=== PATIENT | male | born 1970 | race Hispanic/Latino ===

== ENCOUNTER 2021-08-31 12:11 | Inpatient (IN) | payer MEDICARE ==
--- NOTE | 2021-09-01 08:34 | History and Physical Report ---
GP History & Physical - History of Present Illness Date of admission: 08/31/21 Date of Examination: 09/01/21 Reason for Admission: Danger to self Chief Complaint: Suicidal threats and running away from senior living History of Present Illness: Jose Sterling is a 51 year old male with history of Schizophrenia who was admitted from [facility] on 1012 for suicidal ideation. In my interview with the patient he is calm and cooperative. The patient reports that he lives in a senior living and was lost walking down the road. The patient is withdrawn and presents with thought blocking. He denies any current suicidal/ homicidal ideation and denies hallucinations. Per Note:" The patient was brought to the ED by the police due to being found walking down the road. The patient told the police that he was having suicidal thoughts." The patient reports that he he does not have family support' " I don't have nobody." PAST PSYCHIATRIC HISTORY: Diagnoses: Schizophrenia Suicide attempts or Self-harm behavior: Denies Prior psychiatric hospitalizations: yes Substance Abuse history: Denies Previous psychiatric medications tried: Unknown Outpatient treatment: Unknown PAST MEDICAL HISTORY: None reported or document Family Psychiatric History: None reported or documented SOCIAL HISTORY Marital Status: Single Living Arrangements: lives in a senior living Employment Status: Retired Access to guns/weapons: Denies Education:12th grade History of Abuse: Denies Legal History: Denies REVIEW OF SYSTEMS Constitutional: Negative for weight loss ENT: Negative for stridor Respiratory: Negative for cough or hemoptysis All other systems reviewed and are negative MENTAL STATUS EXAMINATION General Appearance and Behavior: Age appropriate, good hygiene, wearing appropriate clothes. calm, cooperative, poor eye contact Cooperation: Cooperative Psychomotor Behavior: Psychomotor normal Mood: "good" Affect and affective range: Incongruent with stated mood Thought Process: thought blocking Thought Content: Not suicidal Speech: normal tone and pace Suicidal Ideation: Denies Homicidal Ideation: Denies Hallucinations: Denies Delusions: None elicited Impulse Control: Questionable Insight and Judgment: Limited insight and fair judgment Memory: Limited Attention: attentive Orientation: a/o to self Assessment (1) Bipolar Disorder Treatment Plan Patient admitted for inpatient psychiatric evaluation, medication adjustment and close monitoring The patient's behavior, mood, sleep and appetite will be closely monitored. Patient enrolled in individual and group therapeutic sessions and encouraged to attend. Patient provided with a safe and structured environment. Patient's physical health needs will be addressed by the Hospitalist. Hospitalist Consulted Labs including CBC, CMP, Lipid profile and Hemoglobin A1C levels ordered for baseline reference Social Assessment will be completed and the Hvac Services Professional will work with patient and family to ensure a suitable and safe disposition Medication adjustment will be made as clinically indicated Continue home medications Usual Wellness Faith/Preservation: - Start Trazodone 50 mg po QHS & 50 mg po QHS PRN between 10 PM & 2 AM for insomnia - Start Melatonin 5 mg po QHS to promote circadian rhythm The patient agreed on the treatment plan, understood the risk, benefit, alternative treatment, potential consequence of no treatment, and gave informed consent. Estimated days: 7 Post hospital care: primary care provider, psychiatric provider Case staffed with Dr. Caballero Legal Status: Voluntary Reaction to Hospitalization: Accepting Medications and Allergies Medications and Allergies Allergies Allergy/AdvReac Type Severity Reaction Status Date / Time No Known Allergies Allergy Unverified 08/31/21 13:27 Home Medications Medication Instructions Recorded Confirmed Last Taken Type Lurasidone HCl [Latuda] 20 mg PO QAM 08/31/21 08/31/21 Unknown History Lurasidone HCl [Latuda] 60 mg PO HS 08/31/21 08/31/21 Unknown History donepeziL [Aricept] 10 mg PO QDAY 08/31/21 08/31/21 Unknown History risperiDONE [RisperDAL] 3 mg PO HS 08/31/21 08/31/21 Unknown History traZODone [Desyrel] 50 mg PO QHS 08/31/21 08/31/21 Unknown History trihexyphenidyL [Artane Tab] 2 mg PO BID 08/31/21 08/31/21 Unknown History Active Meds: Active Medications Donepezil HCl (Donepezil 10 Mg Tab) 10 mg PO QDAY [facility] Miscellaneous Medication (Lurasidone Hcl [Latuda]) 60 mg PO HS [facility] Miscellaneous Medication (Lurasidone Hcl [Latuda]) 20 mg PO QAM [facility] Risperidone (Risperidone 3 Mg Tab) 3 mg PO HS [facility] Trazodone HCl (Trazodone 50 Mg Tab) 50 mg PO QHS [facility] Trihexyphenidyl HCl (Trihexyphenidyl 2 Mg Tab) 2 mg PO BID [facility] Results - Results Labs/Vitals: Laboratory Last Values POC Glucose 103 mg/dL (70-105) 09/01/21 05:52 Last Vital Signs Temp 98.5 F 09/01/21 00:30 Pulse 65 09/01/21 00:30 Resp 18 09/01/21 00:30 BP 125/72 09/01/21 00:30 Pulse Ox 98 09/01/21 00:30 Physical Examination - Constitutional Vitals: Vital Signs Temp Pulse Resp BP Pulse Ox 98.5 F 65 18 125/72 98 09/01/21 00:30 09/01/21 00:30 09/01/21 00:30 09/01/21 00:30 09/01/21 00:30 Temperature -Last 24 Hours Temperature 98.5 F Mental Status Exam - Vital signs Last Vital Signs Temp 98.5 F 09/01/21 00:30 Pulse 65 09/01/21 00:30 Resp 18 09/01/21 00:30 BP 125/72 09/01/21 00:30 Pulse Ox 98 09/01/21 00:30 Physician Certification - Certification Statement Physician Certification Statement: This is an acknowledgement statement that JOSE STERLING JR. is a 51 year old M who requires inpatient psychiatric admission for treatment which could reasonably be expected to improve the patient's condition for Estimated period of time patient will need to remain in the hospital: [ ] Plan for post-hospital care: [ ]
[2021-09-01 09:25] LABS: Basophils # (Auto) 0.1 K/mm3 (0.0-0.1); Basophils % (Auto) 0.8 % (0.0-1.8); Eosinophils # (Auto) 0.1 K/mm3 (0.0-0.4); Eosinophils % (Auto) 1.2 % (0.0-4.3); Hematocrit 47.9 % (35.5-45.6); Hemoglobin 16.2 gm/dl (11.8-15.2); Lymphocytes # (Auto) 2.2 K/mm3 (1.2-5.4); Lymphocytes % (Auto) 21.2 % (13.4-35.0); Mean Corpuscular HGB Conc 34 % (32-34); Mean Corpuscular Volume 93 fl (84-94); Monocytes # (Auto) 0.7 K/mm3 (0.0-0.8); Monocytes % (Auto) 7.1 % (0.0-7.3); Platelet Count 229 K/mm3 (140-440); Red Blood Count 5.16 M/mm3 (3.65-5.03)
[2021-09-01 09:50] LABS: Alanine Aminotransferase 7 units/L (7-56); Albumin 4.4 g/dL (3.9-5); Blood Urea Nitrogen 9 mg/dL (9-20); Calcium 9.6 mg/dL (8.4-10.2); Chol/HDL Ratio 5.97 %; HDL Cholesterol 39 mg/dL (40-59); Hemolysis Index 6; LDL Cholesterol,Direct 156 mg/dL (50-130)
[2021-09-01 09:54] LABS: BUN/Creatinine Ratio 13
[2021-09-01] MEDS ORDERED: LURASIDONE HCL 20 MG PO SCH (10:00)
--- NOTE | 2021-09-01 12:31 | Consultation ---
History of Present Illness - Reason for Consult Consult date: 09/01/21 Medical management Requesting physician: ANGELICA SUBRAMANIAN - History of Present Illness 51 YO Male with Bipolar Disorder, Depression admitted to [facility] for psychiatric stabilization. Consult placed by Dr. Subramanian for medical management. Patient seen and evaluated in the recreation room. No reported nursing events. Patient denies fever, chills, chest pain, palpitation, productive cough, skin rash, recent contact, or known exposure to COVID-19. Patient denies pain. Pt cooperative. Past History Past Medical History: other (See HPI) Past Surgical History: No surgical history, Other (Reviewed) Social history: single. denies: smoking, alcohol abuse, prescription drug abuse Family history: no significant family history, other (Reviewed) Medications and Allergies Allergies Allergy/AdvReac Type Severity Reaction Status Date / Time No Known Allergies Allergy Unverified 08/31/21 13:27 Home Medications Medication Instructions Recorded Confirmed Last Taken Type Lurasidone HCl [Latuda] 20 mg PO QAM 08/31/21 08/31/21 Unknown History Lurasidone HCl [Latuda] 60 mg PO HS 08/31/21 08/31/21 Unknown History donepeziL [Aricept] 10 mg PO QDAY 08/31/21 08/31/21 Unknown History risperiDONE [RisperDAL] 3 mg PO HS 08/31/21 08/31/21 Unknown History traZODone [Desyrel] 50 mg PO QHS 08/31/21 08/31/21 Unknown History trihexyphenidyL [Artane Tab] 2 mg PO BID 08/31/21 08/31/21 Unknown History Active Meds: Active Medications Donepezil HCl (Donepezil 10 Mg Tab) 10 mg PO QDAY [facility] Miscellaneous Medication (Lurasidone Hcl [Latuda]) 60 mg PO HS [facility] Miscellaneous Medication (Lurasidone Hcl [Latuda]) 20 mg PO QAM [facility] Risperidone (Risperidone 3 Mg Tab) 3 mg PO HS [facility] Trazodone HCl (Trazodone 50 Mg Tab) 50 mg PO QHS [facility] Trihexyphenidyl HCl (Trihexyphenidyl 2 Mg Tab) 2 mg PO BID [facility] Review of Systems Constitutional: no weight loss, no weight gain, no fever, no chills Ears, nose, mouth and throat: no ear pain, no tinnitis, no nose pain, no nasal discharge Cardiovascular: no chest pain, no palpitations, no edema, no lightheadedness Respiratory: no cough, no cough with sputum, no hemoptysis, no shortness of breath Gastrointestinal: no nausea, no vomiting, no constipation, no hematemesis Genitourinary Male: no hematuria, no flank pain, no discharge, no urinary frequency, no urinary hesitancy Rectal: no pain, no incontinence, no bleeding Musculoskeletal: no neck stiffness, no neck pain, no shooting arm pain, no arm numbness/tingling, no low back pain Integumentary: no rash, no pruritis, no redness, no wounds, no jaundice Neurological: no transient paralysis, no paralysis, no parathesias, no tingling, no seizures, no syncope Psychiatric: depression Endocrine: no cold intolerance, no heat intolerance, no polydipsia, no polyuria, no nocturia Hematologic/Lymphatic: no easy bruising, no easy bleeding, no lymphedema Allergic/Immunologic: no urticaria, no allergic rhinitis, no anaphylaxis, no angioedema Exam - Constitutional Vitals: Temp Pulse Resp BP Pulse Ox 98.5 F 65 18 125/72 98 09/01/21 00:30 09/01/21 00:30 09/01/21 00:30 09/01/21 00:30 09/01/21 00:30 General appearance: Present: no acute distress, well-nourished - EENT Eyes: Present: PERRL ENT: hearing intact, clear oral mucosa - Neck Neck: Present: supple, normal ROM - Respiratory Respiratory effort: normal Respiratory: bilateral: CTA - Cardiovascular Heart Sounds: Present: S1 & S2. Absent: rub, click - Extremities Extremities: pulses symmetrical, No edema Peripheral Pulses: within normal limits - Abdominal General gastrointestinal: Present: soft, non-tender, non-distended, normal bowel sounds Male genitourinary: Present: normal - Integumentary Integumentary: Present: clear, warm, dry - Musculoskeletal Musculoskeletal: gait normal, strength equal bilaterally - Psychiatric Psychiatric: appropriate mood/affect, intact judgment & insight - Neurologic Neurologic: CNII-XII intact, moves all extremities Results - Labs CBC & Chem 7: 09/01/21 08:56 09/01/21 08:56 Labs: Abnormal lab results 09/01/21 09/01/21 09/01/21 Range/Units 08:42 08:56 08:56 RBC 5.16 H (3.65-5.03) M/mm3 Hgb 16.2 H (11.8-15.2) gm/dl Hct 47.9 H (35.5-45.6) % Creatinine 0.7 L (0.8-1.3) mg/dL Glucose 143 H (75-100) mg/dL Hemoglobin A1c 6.9 H (4-6) % Triglycerides 222 H (2-149) mg/dL Cholesterol 233 H (50-199) mg/dL LDL Cholesterol Direct 156 H (50-130) mg/dL HDL Cholesterol 39 L (40-59) mg/dL Assessment and Plan - Patient Problems (1) Depression Current Visit: Yes Status: Acute Plan to address problem: Continue current management, supportive care. (2) Bipolar disorder Current Visit: Yes Status: Acute Plan to address problem: Continue medical management (3) Hyperlipidemia Current Visit: Yes Status: Acute Qualifiers: Hyperlipidemia type: mixed hyperlipidemia Qualified Code(s): E78.2 - Mixed hyperlipidemia Plan to address problem: Low-cholesterol diet, supportive care, repeat lipid panel in 30 to 45 days after trial of low-cholesterol diet. Statin therapy as clinically indicated.
[2021-09-01] MEDS: DONEPEZIL 10 MG TAB PO SCH (13:49)
[2021-09-01] MEDS: TRIHEXYPHENIDYL 2 MG TAB PO SCH ×2 (13:49→21:28)
[2021-09-01] MEDS ORDERED: ZIPRASIDONE MESYLATE 20 MG VIAL IM PRN (13:49)
[2021-09-01] MEDS ORDERED: WATER FOR INJ Sterile (PF) 10 ML ONE (14:01)
[2021-09-01] MEDS: risperiDONE 3 MG TAB PO SCH (21:27)
[2021-09-01] MEDS: traZODone 50 MG TAB PO SCH (21:28)
[2021-09-01] MEDS ORDERED: LURASIDONE HCL 60 MG PO SCH (22:00)
--- NOTE | 2021-09-02 09:18 | Progress Note ---
Subjective Date of service: 09/02/21 Subjective Comment: 09/02/2021: The patient was seen pacing the hallway. The patient reports feeling down sometimes. He said he lived at the long-term for 10 years and would like to return there on discharge. He denies any current suicidal ideation and denies hallucinations. SOCIAL HISTORY Marital Status: Single Living Arrangements: lives in a long-term Employment Status: Retired Access to guns/weapons: Denies Education:12th grade History of Abuse: Denies Legal History: Denies REVIEW OF SYSTEMS Constitutional: Negative for weight loss ENT: Negative for stridor Respiratory: Negative for cough or hemoptysis All other systems reviewed and are negative MENTAL STATUS EXAMINATION General Appearance and Behavior: Age appropriate, good hygiene, wearing appropriate clothes. calm, cooperative, poor eye contact Cooperation: Cooperative Psychomotor Behavior: Psychomotor normal Mood: "ok" Affect and affective range: Incongruent with stated mood Thought Process: Goal directed Thought Content: Not suicidal Speech: normal tone and pace Suicidal Ideation: Denies Homicidal Ideation: Denies Hallucinations: Denies Delusions: None elicited Impulse Control: Questionable Insight and Judgment: Limited insight and fair judgment Memory: Limited Attention: attentive Orientation: a/o to self Assessment (1) Schizophrenia Treatment Plan Patient admitted for inpatient psychiatric evaluation, medication adjustment and close monitoring The patient's behavior, mood, sleep and appetite will be closely monitored. Patient enrolled in individual and group therapeutic sessions and encouraged to attend. Patient provided with a safe and structured environment. Patient's physical health needs will be addressed by the Hospitalist. Hospitalist Consulted Labs including CBC, CMP, Lipid profile and Hemoglobin A1C levels ordered for baseline reference Social Assessment will be completed and the Child And Adolescent Psychologist will work with patie nt and family to ensure a suitable and safe disposition Medication adjustment will be made as clinically indicated Continue home medications Usual Wellness Religion/Preservation: - Start Trazodone 50 mg po QHS & 50 mg po QHS PRN between 10 PM & 2 AM for insomnia - Start Melatonin 5 mg po QHS to promote circadian rhythm The patient agreed on the treatment plan, understood the risk, benefit, alternative treatment, potential consequence of no treatment, and gave informed consent. Estimated days: 6 Post hospital care: primary care provider, psychiatric provider Case staffed with Dr. Caballero Legal Status: Voluntary Reaction to Hospitalization: Accepting Medications and Allergies Medications and Allergies Allergies Allergy/AdvReac Type Severity Reaction Status Date / Time No Known Allergies Allergy Unverified 08/31/21 13:27 Home Medications Medication Instructions Recorded Confirmed Last Taken Type Lurasidone HCl [Latuda] 20 mg PO QAM 08/31/21 08/31/21 Unknown History Lurasidone HCl [Latuda] 60 mg PO 08/31/21 08/31/21 Unknown History donepeziL [Aricept] 10 mg PO QDAY 08/31/21 08/31/21 Unknown History risperiDONE [RisperDAL] 3 mg PO HS 08/31/21 08/31/21 Unknown History traZODone [Desyrel] 50 mg PO QHS 08/31/21 08/31/21 Unknown History trihexyphenidyL [Artane Tab] 2 mg PO BID 08/31/21 08/31/21 Unknown History Active Meds: Active Medications Donepezil HCl (Donepezil 10 Mg Tab) 10 mg PO QDAY [facility] Last Admin: 09/01/21 13:49 Dose: 10 mg Documented by: Lorazepam (Lorazepam 2 Mg/Ml Vial) 1 mg IM Q4H PRN PRN Reason: Anxiety Miscellaneous Medication (Lurasidone Hcl [Latuda]) 60 mg PO HS [facility] Miscellaneous Medication (Lurasidone Hcl [Latuda]) 20 mg PO QAM [facility] Risperidone (Risperidone 3 Mg Tab) 3 mg PO [facility] Last Admin: 09/01/21 21:27 Dose: 3 mg Documented by: Trazodone HCl (Trazodone 50 Mg Tab) 50 mg PO QHS [facility] Last Admin: 09/01/21 21:28 Dose: 50 mg Documented by: Trihexyphenidyl HCl (Trihexyphenidyl 2 Mg Tab) 2 mg PO BID [facility] Last Admin: 09/01/21 21:28 Dose: 2 mg Documented by: Results - Results Labs/Vitals: Laboratory Last Values WBC 10.3 K/mm3 (4.5-11.0) 09/01/21 08:56 RBC 5.16 M/mm3 (3.65-5.03) H 09/01/21 08:56 Hgb 16.2 gm/dl (11.8-15.2) H 09/01/21 08:56 Hct 47.9 % (35.5-45.6) H 09/01/21 08:56 MCV 93 fl (84-94) 09/01/21 08:56 MCH 32 pg (28-32) 09/01/21 08:56 MCHC 34 % (32-34) 09/01/21 08:56 RDW 15.0 % (13.2-15.2) 09/01/21 08:56 Plt Count 229 K/mm3 (140-440) 09/01/21 08:56 Lymph % (Auto) 21.2 % (13.4-35.0) 09/01/21 08:56 Crawford % (Auto) 7.1 % (0.0-7.3) 09/01/21 08:56 Eos % (Auto) 1.2 % (0.0-4.3) 09/01/21 08:56 Baso % (Auto) 0.8 % (0.0-1.8) 09/01/21 08:56 Lymph # (Auto) 2.2 K/mm3 (1.2-5.4) 09/01/21 08:56 Crawford # (Auto) 0.7 K/mm3 (0.0-0.8) 09/01/21 08:56 Eos # (Auto) 0.1 K/mm3 (0.0-0.4) 09/01/21 08:56 Baso # (Auto) 0.1 K/mm3 (0.0-0.1) 09/01/21 08:56 Seg Neutrophils % 69.7 % (40.0-70.0) 09/01/21 08:56 Seg Neutrophils # 7.2 K/mm3 (1.8-7.7) 09/01/21 08:56 Sodium 140 mmol/L (137-145) 09/01/21 08:56 Potassium 4.4 mmol/L (3.6-5.0) 09/01/21 08:56 Chloride 101.8 mmol/L (98-107) 09/01/21 08:56 Carbon Dioxide 24 mmol/L (22-30) 09/01/21 08:56 Anion Gap 19 mmol/L 09/01/21 08:56 BUN 9 mg/dL (9-20) 09/01/21 08:56 Creatinine 0.7 mg/dL (0.8-1.3) L 09/01/21 08:56 Estimated GFR > 60 ml/min 09/01/21 08:56 BUN/Creatinine Ratio 13 % 09/01/21 08:56 Glucose 143 mg/dL (75-100) H 09/01/21 08:56 POC Glucose 99 mg/dL (70-105) 09/02/21 06:12 Hemoglobin A1c 6.9 % (4-6) H 09/01/21 08:42 Calcium 9.6 mg/dL (8.4-10.2) 09/01/21 08:56 Total Bilirubin 0.40 mg/dL (0.1-1.2) 09/01/21 08:56 AST 12 units/L (5-40) 09/01/21 08:56 ALT 7 units/L (7-56) 09/01/21 08:56 Alkaline Phosphatase 117 units/L (35-129) 09/01/21 08:56 Total Protein 7.5 g/dL (6.3-8.2) 09/01/21 08:56 Albumin 4.4 g/dL (3.9-5) 09/01/21 08:56 Albumin/Globulin Ratio 1.4 % 09/01/21 08:56 Triglycerides 222 mg/dL (2-149) H 09/01/21 08:56 Cholesterol 233 mg/dL (50-199) H 09/01/21 08:56 LDL Cholesterol Direct 156 mg/dL (50-130) H 09/01/21 08:56 HDL Cholesterol 39 mg/dL (40-59) L 09/01/21 08:56 Cholesterol/HDL Ratio 5.97 % 09/01/21 08:56 TSH 1.100 mlU/mL (0.270-4.200) 09/01/21 08:56 Last Vital Signs Temp 97.6 F 09/01/21 22:00 Pulse 64 09/01/21 22:00 Resp 16 09/01/21 22:00 BP 127/82 09/01/21 22:00 Pulse Ox 99 09/01/21 22:00
[2021-09-02] MEDS: DONEPEZIL 10 MG TAB PO SCH (09:55)
[2021-09-02] MEDS: TRIHEXYPHENIDYL 2 MG TAB PO SCH ×2 (09:55→21:14)
[2021-09-02] MEDS: hydrOXYzine PAMOATE 25 MG CAP PO PRN (14:27)
[2021-09-02] MEDS: LORazepam 2 MG/ML VIAL IM PRN (19:00)
[2021-09-02] MEDS: risperiDONE 3 MG TAB PO SCH (21:14)
[2021-09-02] MEDS: traZODone 50 MG TAB PO SCH (21:14)
--- NOTE | 2021-09-03 08:35 | Progress Note ---
Subjective Date of service: 09/03/21 Subjective Comment: 09/02/2021: The patient was seen pacing the hallway. The patient reports feeling down sometimes. He said he lived at the assisted for 10 years and would like to return there on discharge. He denies any current suicidal ideation and denies hallucinations. 09/03/2021: The patient was seen eating breakfast. He reports doing well. He is focused on discharge. He denies any current suicidal ideation and denies hallucinations. SOCIAL HISTORY Marital Status: Single Living Arrangements: lives in a assisted Employment Status: Retired Access to guns/weapons: Denies Education:12th grade History of Abuse: Denies Legal History: Denies REVIEW OF SYSTEMS Constitutional: Negative for weight loss ENT: Negative for stridor Respiratory: Negative for cough or hemoptysis All other systems reviewed and are negative MENTAL STATUS EXAMINATION General Appearance and Behavior: Age appropriate, good hygiene, wearing appropriate clothes. calm, cooperative, poor eye contact Cooperation: Cooperative Psychomotor Behavior: Psychomotor normal Mood: "ok" Affect and affective range: Incongruent with stated mood Thought Process: Goal directed Thought Content: Not suicidal Speech: normal tone and pace Suicidal Ideation: Denies Homicidal Ideation: Denies Hallucinations: Denies Delusions: None elicited Impulse Control: Questionable Insight and Judgment: Limited insight and fair judgment Memory: Limited Attention: attentive Orientation: a/o to self Assessment (1) Schizophrenia Treatment Plan Patient admitted for inpatient psychiatric evaluation, medication adjustment and close monitoring The patient's behavior, mood, sleep and appetite will be closely monitored. Patient enrolled in individual and group therapeutic sessions and encouraged to attend. Patient provided with a safe and structured environment. Patient's physical health needs will be addressed by the Hospitalist. Hospi talist Consulted Labs including CBC, CMP, Lipid profile and Hemoglobin A1C levels ordered for baseline reference Social Assessment will be completed and the Technology Development Intern will work with patient and family to ensure a suitable and safe disposition Medication adjustment will be made as clinically indicated Continue home medications Usual Wellness Zoroastrian/Preservation: - Start Trazodone 50 mg po QHS & 50 mg po QHS PRN between 10 PM & 2 AM for insomnia - Start Melatonin 5 mg po QHS to promote circadian rhythm The patient agreed on the treatment plan, understood the risk, benefit, alternative treatment, potential consequence of no treatment, and gave informed consent. Estimated days: 6 Post hospital care: primary care provider, psychiatric provider Case staffed with Dr. Caballero Legal Status: Voluntary Reaction to Hospitalization: Accepting Medications and Allergies Medications and Allergies Allergies Allergy/AdvReac Type Severity Reaction Status Date / Time No Known Allergies Allergy Unverified 08/31/21 13:27 Home Medications Medication Instructions Recorded Confirmed Last Taken Type Lurasidone HCl [Latuda] 20 mg PO QAM 08/31/21 08/31/21 Unknown History Lurasidone HCl [Latuda] 60 mg PO HS 08/31/21 08/31/21 Unknown History donepeziL [Aricept] 10 mg PO QDAY 08/31/21 08/31/21 Unknown History risperiDONE [RisperDAL] 3 mg PO HS 08/31/21 08/31/21 Unknown History traZODone [Desyrel] 50 mg PO QHS 08/31/21 08/31/21 Unknown History trihexyphenidyL [Artane Tab] 2 mg PO BID 08/31/21 08/31/21 Unknown History Active Meds: Active Medications Donepezil HCl (Donepezil 10 Mg Tab) 10 mg PO QDAY [facility] Last Admin: 09/02/21 09:55 Dose: 10 mg Documented by: Hydroxyzine Pamoate (Hydroxyzine Pamoate 25 Mg Cap) 25 mg PO Q6H PRN PRN Reason: Anxiety Last Admin: 09/02/21 14:27 Dose: 25 mg Documented by: Lorazepam (Lorazepam 2 Mg/Ml Vial) 1 mg IM Q4H PRN PRN Reason: Anxiety Last Admin: 09/02/21 19:00 Dose: 1 mg Documented by: Miscellaneous Medication (Lurasidone Hcl [Latuda]) 60 mg PO HS [facility] Miscellaneous Medication (Lurasidone Hcl [Latuda]) 20 mg PO QAM [facility] Risperidone (Risperidone 3 Mg Tab) 3 mg PO [facility] Last Admin: 09/02/21 21:14 Dose: 3 mg Documented by: Trazodone HCl (Trazodone 50 Mg Tab) 50 mg PO QHS [facility] Last Admin: 09/02/21 21:14 Dose: 50 mg Documented by: Trihexyphenidyl HCl (Trihexyphenidyl 2 Mg Tab) 2 mg PO BID [facility] Last Admin: 09/02/21 21:14 Dose: 2 mg Documented by: Results - Results Labs/Vitals: Laboratory Last Values WBC 10.3 K/mm3 (4.5-11.0) 09/01/21 08:56 RBC 5.16 M/mm3 (3.65-5.03) H 09/01/21 08:56 Hgb 16.2 gm/dl (11.8-15.2) H 09/01/21 08:56 Hct 47.9 % (35.5-45.6) H 09/01/21 08:56 MCV 93 fl (84-94) 09/01/21 08:56 MCH 32 pg (28-32) 09/01/21 08:56 MCHC 34 % (32-34) 09/01/21 08:56 RDW 15.0 % (13.2-15.2) 09/01/21 08:56 Plt Count 229 K/mm3 (140-440) 09/01/21 08:56 Lymph % (Auto) 21.2 % (13.4-35.0) 09/01/21 08:56 [place] % (Auto) 7.1 % (0.0-7.3) 09/01/21 08:56 Eos % (Auto) 1.2 % (0.0-4.3) 09/01/21 08:56 Baso % (Auto) 0.8 % (0.0-1.8) 09/01/21 08:56 Lymph # (Auto) 2.2 K/mm3 (1.2-5.4) 09/01/21 08:56 [place] # (Auto) 0.7 K/mm3 (0.0-0.8) 09/01/21 08:56 Eos # (Auto) 0.1 K/mm3 (0.0-0.4) 09/01/21 08:56 Baso # (Auto) 0.1 K/mm3 (0.0-0.1) 09/01/21 08:56 Seg Neutrophils % 69.7 % (40.0-70.0) 09/01/21 08:56 Seg Neutrophils # 7.2 K/mm3 (1.8-7.7) 09/01/21 08:56 Sodium 140 mmol/L (137-145) 09/01/21 08:56 Potassium 4.4 mmol/L (3.6-5.0) 09/01/21 08:56 Chloride 101.8 mmol/L (98-107) 09/01/21 08:56 Carbon Dioxide 24 mmol/L (22-30) 09/01/21 08:56 Anion Gap 19 mmol/L 09/01/21 08:56 BUN 9 mg/dL (9-20) 09/01/21 08:56 Creatinine 0.7 mg/dL (0.8-1.3) L 09/01/21 08:56 Estimated GFR > 60 ml/min 09/01/21 08:56 BUN/Creatinine Ratio 13 % 09/01/21 08:56 Glucose 143 mg/dL (75-100) H 09/01/21 08:56 POC Glucose 116 mg/dL (70-105) H 09/03/21 07:38 Hemoglobin A1c 6.9 % (4-6) H 09/01/21 08:42 Calcium 9.6 mg/dL (8.4-10.2) 09/01/21 08:56 Total Bilirubin 0.40 mg/dL (0.1-1.2) 09/01/21 08:56 AST 12 units/L (5-40) 09/01/21 08:56 ALT 7 units/L (7-56) 09/01/21 08:56 Alkaline Phosphatase 117 units/L (35-129) 09/01/21 08:56 Total Protein 7.5 g/dL (6.3-8.2) 09/01/21 08:56 Albumin 4.4 g/dL (3.9-5) 09/01/21 08:56 Albumin/Globulin Ratio 1.4 % 09/01/21 08:56 Triglycerides 222 mg/dL (2-149) H 09/01/21 08:56 Cholesterol 233 mg/dL (50-199) H 09/01/21 08:56 LDL Cholesterol Direct 156 mg/dL (50-130) H 09/01/21 08:56 HDL Cholesterol 39 mg/dL (40-59) L 09/01/21 08:56 Cholesterol/HDL Ratio 5.97 % 09/01/21 08:56 TSH 1.100 mlU/mL (0.270-4.200) 09/01/21 08:56 Last Vital Signs Temp 98.4 F 09/02/21 20:00 Pulse 72 10/16/21 20:00 Resp 20 09/02/21 20:00 BP 114/72 09/02/21 20:00 Pulse Ox 97 09/02/21 20:00
[2021-09-03] MEDS: TRIHEXYPHENIDYL 2 MG TAB PO SCH ×2 (09:22→22:28)
[2021-09-03] MEDS: DONEPEZIL 10 MG TAB PO SCH (09:22)
--- NOTE | 2021-09-03 20:03 | Progress Note ---
Assessment and Plan - Patient Problems (1) Depression Current Visit: Yes Status: Acute Plan to address problem: Continue current management, supportive care. (2) Bipolar disorder Current Visit: Yes Status: Acute Plan to address problem: Continue medical management (3) Hyperlipidemia Current Visit: Yes Status: Acute Qualifiers: Hyperlipidemia type: mixed hyperlipidemia Qualified Code(s): E78.2 - Mixed hyperlipidemia Plan to address problem: Low-cholesterol diet, supportive care, repeat lipid panel in 30 to 45 days after trial of low-cholesterol diet. Statin therapy as clinically indicated. History Interval history: 51 YO Male with Bipolar Disorder, Depression admitted to [facility] for psychiatric stabilization. Patient seen and evaluated in the recreation room. No reported nursing events. Pt cooperative. Hospitalist Physical - Constitutional Vitals: Temp Pulse Resp BP Pulse Ox 98.9 F 92 H 16 104/71 96 09/03/21 08:30 09/03/21 08:30 09/03/21 08:30 09/03/21 08:30 09/03/21 08:30 General appearance: Present: no acute distress, well-nourished - EENT Eyes: Present: PERRL, EOM intact ENT: hearing intact - Neck Neck: Present: supple - Respiratory Respiratory effort: normal Respiratory: bilateral: CTA - Cardiovascular Rhythm: regular Heart Sounds: Present: S1 & S2 - Extremities Extremities: no ischemia Peripheral Pulses: within normal limits - Abdominal General gastrointestinal: soft, non-tender, non-distended - Integumentary Integumentary: Present: clear, dry - Psychiatric Psychiatric: cooperative - Neurologic Neurologic: CNII-XII intact Results - Labs CBC & Chem 7: 09/01/21 08:56 09/01/21 08:56 Labs: Laboratory Last Values WBC 10.3 K/mm3 (4.5-11.0) 09/01/21 08:56 RBC 5.16 M/mm3 (3.65-5.03) H 09/01/21 08:56 Hgb 16.2 gm/dl (11.8-15.2) H 09/01/21 08:56 Hct 47.9 % (35.5-45.6) H 09/01/21 08:56 MCV 93 fl (84-94) 09/01/21 08:56 MCH 32 pg (28-32) 09/01/21 08:56 MCHC 34 % (32-34) 09/01/21 08:56 RDW 15.0 % (13.2-15.2) 09/01/21 08:56 Plt Count 229 K/mm3 (140-440) 09/01/21 08:56 Lymph % (Auto) 21.2 % (13.4-35.0) 09/01/21 08:56 [place] % (Auto) 7.1 % (0.0-7.3) 09/01/21 08:56 Eos % (Auto) 1.2 % (0.0-4.3) 09/01/21 08:56 Baso % (Auto) 0.8 % (0.0-1.8) 09/01/21 08:56 Lymph # (Auto) 2.2 K/mm3 (1.2-5.4) 09/01/21 08:56 [place] # (Auto) 0.7 K/mm3 (0.0-0.8) 09/01/21 08:56 Eos # (Auto) 0.1 K/mm3 (0.0-0.4) 09/01/21 08:56 Baso # (Auto) 0.1 K/mm3 (0.0-0.1) 09/01/21 08:56 Seg Neutrophils % 69.7 % (40.0-70.0) 09/01/21 08:56 Seg Neutrophils # 7.2 K/mm3 (1.8-7.7) 09/01/21 08:56 Sodium 140 mmol/L (137-145) 09/01/21 08:56 Potassium 4.4 mmol/L (3.6-5.0) 09/01/21 08:56 Chloride 101.8 mmol/L (98-107) 09/01/21 08:56 Carbon Dioxide 24 mmol/L (22-30) 09/01/21 08:56 Anion Gap 19 mmol/L 09/01/21 08:56 BUN 9 mg/dL (9-20) 09/01/21 08:56 Creatinine 0.7 mg/dL (0.8-1.3) L 09/01/21 08:56 Estimated GFR > 60 ml/min 09/01/21 08:56 BUN/Creatinine Ratio 13 % 09/01/21 08:56 Glucose 143 mg/dL (75-100) H 09/01/21 08:56 POC Glucose 116 mg/dL (70-105) H 09/03/21 07:38 Hemoglobin A1c 6.9 % (4-6) H 09/01/21 08:42 Calcium 9.6 mg/dL (8.4-10.2) 09/01/21 08:56 Total Bilirubin 0.40 mg/dL (0.1-1.2) 09/01/21 08:56 AST 12 units/L (5-40) 09/01/21 08:56 ALT 7 units/L (7-56) 09/01/21 08:56 Alkaline Phosphatase 117 units/L (35-129) 09/01/21 08:56 Total Protein 7.5 g/dL (6.3-8.2) 09/01/21 08:56 Albumin 4.4 g/dL (3.9-5) 09/01/21 08:56 Albumin/Globulin Ratio 1.4 % 09/01/21 08:56 Triglycerides 222 mg/dL (2-149) H 09/01/21 08:56 Cholesterol 233 mg/dL (50-199) H 09/01/21 08:56 LDL Cholesterol Direct 156 mg/dL (50-130) H 09/01/21 08:56 HDL Cholesterol 39 mg/dL (40-59) L 09/01/21 08:56 Cholesterol/HDL Ratio 5.97 % 09/01/21 08:56 TSH 1.100 mlU/mL (0.270-4.200) 09/01/21 08:56 Rodriguez/IV: Voiding Method Toilet Active Medications - Current Medications Current Medications: Generic Name Dose Route Start Last Admin Trade Name Freq PRN Reason Stop Dose Admin Donepezil HCl 10 mg 09/01/21 10:00 09/03/21 09:22 Donepezil 10 Mg Tab PO 10 mg QDAY [facility] Administration Hydroxyzine Pamoate 25 mg 09/02/21 11:00 09/02/21 14:27 Hydroxyzine Pamoate 25 Mg Cap PO 25 mg Q6H PRN Administration Anxiety Lorazepam 1 mg 09/01/21 14:00 09/02/21 19:00 Lorazepam 2 Mg/Ml Vial IM 1 mg Q4H PRN Administration Anxiety Miscellaneous Medication 60 mg 09/01/21 22:00 Lurasidone Hcl [Latuda] PO HS [facility] Miscellaneous Medication 20 mg 09/01/21 10:00 Lurasidone Hcl [Latuda] PO QAM [facility] Risperidone 3 mg 09/01/21 22:00 09/02/21 21:14 Risperidone 3 Mg Tab PO 3 mg HS [facility] Administration Trazodone HCl 50 mg 09/01/21 22:00 09/02/21 21:14 Trazodone 50 Mg Tab PO 50 mg QHS [facility] Administration Trihexyphenidyl HCl 2 mg 09/01/21 10:00 09/03/21 09:22 Trihexyphenidyl 2 Mg Tab PO 2 mg BID [facility] Administration
[2021-09-03] MEDS: traZODone 50 MG TAB PO SCH (22:28)
[2021-09-03] MEDS: risperiDONE 3 MG TAB PO SCH (22:28)
--- NOTE | 2021-09-04 08:44 | Progress Note ---
Subjective Date of service: 09/04/21 Subjective Comment: 09/02/2021: The patient was seen pacing the hallway. The patient reports feeling down sometimes. He said he lived at the alf for 10 years and would like to return there on discharge. He denies any current suicidal ideation and denies hallucinations. 09/03/2021: The patient was seen eating breakfast. He reports doing well. He is focused on discharge. He denies any current suicidal ideation and denies ravi lucinations. 09/04/2021: Patient seen this morning. He reports doing well and more interactive. He states sleep and appetite as good. The patient denies any current suicidal/homicidal ideation and denies hallucinations. SOCIAL HISTORY Marital Status: Single Living Arrangements: lives in a alf Employment Status: Retired Access to guns/weapons: Denies Education:12th grade History of Abuse: Denies Legal History: Denies REVIEW OF SYSTEMS Constitutional: Negative for weight loss ENT: Negative for stridor Respiratory: Negative for cough or hemoptysis All other systems reviewed and are negative MENTAL STATUS EXAMINATION General Appearance and Behavior: Age appropriate, good hygiene, wearing appropriate clothes. calm, cooperative, poor eye contact Cooperation: Cooperative Psychomotor Behavior: Psychomotor normal Mood: "good" Affect and affective range: Incongruent with stated mood Thought Process: Goal directed Thought Content: Not suicidal Speech: normal tone and pace Suicidal Ideation: Denies Homicidal Ideation: Denies Hallucinations: Denies Delusions: None elicited Impulse Control: Questionable Insight and Judgment: Limited insight and fair judgment Memory: Limited Attention: attentive Orientation: a/o to self Assessment (1) Schizophrenia Treatment Plan Patient admitted for inpatient psychiatric evaluation, medication adjustment and close monitoring The patient's behavior, mood, sleep and appetite will be closely monitored. Patient enrolled in individual and group therapeutic sessions and encouraged to attend. Patient provided with a safe and structured environment. Patient's physical health needs will be addressed by the Hospitalist. Hospitalist Consulted Labs including CBC, CMP, Lipid profile and Hemoglobin A1C levels ordered for baseline reference Social Assessment will be completed and the [employer] will work with patient and family to ensure a suitable and safe disposition Medication adjustment will be made as clinically indicated Continue home medications Usual Wellness Quaker/Preservation: - Start Trazodone 50 mg po QHS & 50 mg po QHS PRN between 10 PM & 2 AM for insomnia - Start Melatonin 5 mg po QHS to promote circadian rhythm The patient agreed on the treatment plan, understood the risk, benefit, alternative treatment, potential consequence of no treatment, and gave informed consent. Estimated days: 4 Post hospital care: primary care provider, psychiatric provider Case staffed with Dr. Caballero Legal Status: Voluntary Reaction to Hospitalization: Accepting Medications and Allergies Medications and Allergies Allergies Allergy/AdvReac Type Severity Reaction Status Date / Time No Known Allergies Allergy Unverified 08/31/21 13:27 Home Medications Medication Instructions Recorded Confirmed Last Taken Type Lurasidone HCl [Latuda] 20 mg PO QAM 08/31/21 08/31/21 Unknown History Lurasidone HCl [Latuda] 60 mg PO HS 08/31/21 08/31/21 Unknown History donepeziL [Aricept] 10 mg PO QDAY 08/31/21 08/31/21 Unknown History risperiDONE [RisperDAL] 3 mg PO HS 08/31/21 08/31/21 Unknown History traZODone [Desyrel] 50 mg PO QHS 08/31/21 08/31/21 Unknown History trihexyphenidyL [Artane Tab] 2 mg PO BID 08/31/21 08/31/21 Unknown History Active Meds: Active Medications Donepezil HCl (Donepezil 10 Mg Tab) 10 mg PO QDAY [facility] Last Admin: 09/03/21 09:22 Dose: 10 mg Documented by: Hydroxyzine Pamoate (Hydroxyzine Pamoate 25 Mg Cap) 25 mg PO Q6H PRN PRN Reason: Anxiety Last Admin: 09/02/21 14:27 Dose: 25 mg Documented by: Lorazepam (Lorazepam 2 Mg/Ml Vial) 1 mg IM Q4H PRN PRN Reason: Anxiety Last Admin: 09/02/21 19:00 Dose: 1 mg Documented by: Miscellaneous Medication (Lurasidone Hcl [Latuda]) 60 mg PO HS [facility] Miscellaneous Medication (Lurasidone Hcl [Latuda]) 20 mg PO QAM [facility] Risperidone (Risperidone 3 Mg Tab) 3 mg PO HS [facility] Last Admin: 09/03/21 22:28 Dose: 3 mg Documented by: Trazodone HCl (Trazodone 50 Mg Tab) 50 mg PO QHS [facility] Last Admin: 09/03/21 22:28 Dose: 50 mg Documented by: Trihexyphenidyl HCl (Trihexyphenidyl 2 Mg Tab) 2 mg PO BID [facility] Last Admin: 09/03/21 22:28 Dose: 2 mg Documented by: Results - Results Labs/Vitals: Laboratory Last Values WBC 10.3 K/mm3 (4.5-11.0) 09/01/21 08:56 RBC 5.16 M/mm3 (3.65-5.03) H 09/01/21 08:56 Hgb 16.2 gm/dl (11.8-15.2) H 09/01/21 08:56 Hct 47.9 % (35.5-45.6) H 09/01/21 08:56 MCV 93 fl (84-94) 09/01/21 08:56 MCH 32 pg (28-32) 09/01/21 08:56 MCHC 34 % (32-34) 09/01/21 08:56 RDW 15.0 % (13.2-15.2) 09/01/21 08:56 Plt Count 229 K/mm3 (140-440) 09/01/21 08:56 Lymph % (Auto) 21.2 % (13.4-35.0) 09/01/21 08:56 [place] % (Auto) 7.1 % (0.0-7.3) 09/01/21 08:56 Eos % (Auto) 1.2 % (0.0-4.3) 09/01/21 08:56 Baso % (Auto) 0.8 % (0.0-1.8) 09/01/21 08:56 Lymph # (Auto) 2.2 K/mm3 (1.2-5.4) 09/01/21 08:56 [place] # (Auto) 0.7 K/mm3 (0.0-0.8) 09/01/21 08:56 Eos # (Auto) 0.1 K/mm3 (0.0-0.4) 09/01/21 08:56 Baso # (Auto) 0.1 K/mm3 (0.0-0.1) 09/01/21 08:56 Seg Neutrophils % 69.7 % (40.0-70.0) 09/01/21 08:56 Seg Neutrophils # 7.2 K/mm3 (1.8-7.7) 09/01/21 08:56 Sodium 140 mmol/L (137-145) 09/01/21 08:56 Potassium 4.4 mmol/L (3.6-5.0) 09/01/21 08:56 Chloride 101.8 mmol/L (98-107) 09/01/21 08:56 Carbon Dioxide 24 mmol/L (22-30) 09/01/21 08:56 Anion Gap 19 mmol/L 09/01/21 08:56 BUN 9 mg/dL (9-20) 09/01/21 08:56 Creatinine 0.7 mg/dL (0.8-1.3) L 09/01/21 08:56 Estimated GFR > 60 ml/min 09/01/21 08:56 BUN/Creatinine Ratio 13 % 09/01/21 08:56 Glucose 143 mg/dL (75-100) H 09/01/21 08:56 POC Glucose 107 mg/dL (70-105) H 09/04/21 06:12 Hemoglobin A1c 6.9 % (4-6) H 09/01/21 08:42 Calcium 9.6 mg/dL (8.4-10.2) 09/01/21 08:56 Total Bilirubin 0.40 mg/dL (0.1-1.2) 09/01/21 08:56 AST 12 units/L (5-40) 09/01/21 08:56 ALT 7 units/L (7-56) 09/01/21 08:56 Alkaline Phosphatase 117 units/L (35-129) 09/01/21 08:56 Total Protein 7.5 g/dL (6.3-8.2) 09/01/21 08:56 Albumin 4.4 g/dL (3.9-5) 09/01/21 08:56 Albumin/Globulin Ratio 1.4 % 09/01/21 08:56 Triglycerides 222 mg/dL (2-149) H 09/01/21 08:56 Cholesterol 233 mg/dL (50-199) H 09/01/21 08:56 LDL Cholesterol Direct 156 mg/dL (50-130) H 09/01/21 08:56 HDL Cholesterol 39 mg/dL (40-59) L 09/01/21 08:56 Cholesterol/HDL Ratio 5.97 % 09/01/21 08:56 TSH 1.100 mlU/mL (0.270-4.200) 09/01/21 08:56 Last Vital Signs Temp 98.9 F 09/03/21 08:30 Pulse 92 H 09/03/21 08:30 Resp 16 09/03/21 08:30 BP 104/71 09/03/21 08:30 Pulse Ox 96 09/03/21 08:30
[2021-09-04] MEDS: TRIHEXYPHENIDYL 2 MG TAB PO SCH ×2 (09:17→21:23)
[2021-09-04] MEDS: DONEPEZIL 10 MG TAB PO SCH (09:17)
[2021-09-04] MEDS: LORazepam 2 MG/ML VIAL IM PRN (17:47)
[2021-09-04] MEDS: risperiDONE 3 MG TAB PO SCH (21:23)
[2021-09-04] MEDS: traZODone 50 MG TAB PO SCH (21:23)
[2021-09-04] MEDS: hydrOXYzine PAMOATE 25 MG CAP PO PRN (21:23)
--- NOTE | 2021-09-05 08:08 | Progress Note ---
Subjective Date of service: 09/05/21 Subjective Comment: 09/02/2021: The patient was seen pacing the hallway. The patient reports feeling down sometimes. [facility] and would like to return there on discharge. He denies any current suicidal ideation and denies hallucinations. 09/03/2021: The patient was seen eating breakfast. He reports doing well. He is focused on discharge. He denies any current suicidal ideation and denies ravi lucinations. 09/04/2021: Patient seen this morning. He reports doing well and more interactive. He states sleep and appetite as good. The patient denies any current suicidal/homicidal ideation and denies hallucinations. 09/05/2021: He reports doing well. He states sleep and appetite as good. The patient denies any current suicidal/homicidal ideation and denies hallucinations. SOCIAL HISTORY Marital Status: Single Living Arrangements: [facility] Employment Status: Retired Access to guns/weapons: Denies Education:12th grade History of Abuse: Denies Legal History: Denies REVIEW OF SYSTEMS Constitutional: Negative for weight loss ENT: Negative for stridor Respiratory: Negative for cough or hemoptysis All other systems reviewed and are negative MENTAL STATUS EXAMINATION General Appearance and Behavior: Age appropriate, good hygiene, wearing appropriate clothes. calm, cooperative, poor eye contact Cooperation: Cooperative Psychomotor Behavior: Psychomotor normal Mood: "ok" Affect and affective range: Incongruent with stated mood Thought Process: Goal directed Thought Content: Not suicidal Speech: normal tone and pace Suicidal Ideation: Denies Homicidal Ideation: Denies Hallucinations: Denies Delusions: None elicited Impulse Control: Questionable Insight and Judgment: Limited insight and fair judgment Memory: Limited Attention: attentive Orientation: a/o to self Assessment (1) Schizophrenia Treatment Plan Patient admitted for inpatient psychiatric evaluation, medication adjustment and close monitoring The patient's behavior, mood, sleep and appetite will be closely monitored. Patient enrolled in individual and group therapeutic sessions and encouraged to attend. Patient provided with a safe and structured environment. Patient's physical health needs will be addressed by the Hospitalist. Hospitalist Consulted Labs including CBC, CMP, Lipid profile and Hemoglobin A1C levels ordered for baseline reference Social Assessment will be completed and the Territory Sales Manager Medical will work with patient and family to ensure a suitable and safe disposition Medication adjustment will be made as clinically indicated Continue home medications Usual Wellness Episcopalian/Preservation: - Start Trazodone 50 mg po QHS & 50 mg po QHS PRN between 10 PM & 2 AM for insomnia - Start Melatonin 5 mg po QHS to promote circadian rhythm The patient agreed on the treatment plan, understood the risk, benefit, alternative treatment, potential consequence of no treatment, and gave informed consent. Estimated days: 4 Post hospital care: primary care provider, psychiatric provider Case staffed with Dr. Caballero Legal Status: Voluntary Reaction to Hospitalization: Accepting Medications and Allergies Medications and Allergies Allergies Allergy/AdvReac Type Severity Reaction Status Date / Time No Known Allergies Allergy Unverified 08/31/21 13:27 Home Medications Medication Instructions Recorded Confirmed Last Taken Type Lurasidone HCl [Latuda] 20 mg PO QAM 08/31/21 08/31/21 Unknown History Lurasidone HCl [Latuda] 60 mg PO HS 08/31/21 08/31/21 Unknown History donepeziL [Aricept] 10 mg PO QDAY 08/31/21 08/31/21 Unknown History risperiDONE [RisperDAL] 3 mg PO HS 08/31/21 08/31/21 Unknown History traZODone [Desyrel] 50 mg PO QHS 08/31/21 08/31/21 Unknown History trihexyphenidyL [Artane Tab] 2 mg PO BID 08/31/21 08/31/21 Unknown History Active Meds: Active Medications Donepezil HCl (Donepezil 10 Mg Tab) 10 mg PO QDAY [facility] Last Admin: 09/04/21 09:17 Dose: 10 mg Documented by: Hydroxyzine Pamoate (Hydroxyzine Pamoate 25 Mg Cap) 25 mg PO Q6H PRN PRN Reason: Anxiety Last Admin: 09/04/21 21:23 Dose: 25 mg Documented by: Lorazepam (Lorazepam 2 Mg/Ml Vial) 1 mg IM Q4H PRN PRN Reason: Anxiety Last Admin: 09/04/21 17:47 Dose: 1 mg Documented by: Miscellaneous Medication (Lurasidone Hcl [Latuda]) 60 mg PO HS [facility] Miscellaneous Medication (Lurasidone Hcl [Latuda]) 20 mg PO QAM [facility] Risperidone (Risperidone 3 Mg Tab) 3 mg PO HS [facility] Last Admin: 09/04/21 21:23 Dose: 3 mg Documented by: Trazodone HCl (Trazodone 50 Mg Tab) 50 mg PO QHS [facility] Last Admin: 09/04/21 21:23 Dose: 50 mg Documented by: Trihexyphenidyl HCl (Trihexyphenidyl 2 Mg Tab) 2 mg PO BID [facility] Last Admin: 09/04/21 21:23 Dose: 2 mg Documented by: Results - Results Labs/Vitals: Laboratory Last Values WBC 10.3 K/mm3 (4.5-11.0) 09/01/21 08:56 RBC 5.16 M/mm3 (3.65-5.03) H 09/01/21 08:56 Hgb 16.2 gm/dl (11.8-15.2) H 09/01/21 08:56 Hct 47.9 % (35.5-45.6) H 09/01/21 08:56 MCV 93 fl (84-94) 09/01/21 08:56 MCH 32 pg (28-32) 09/01/21 08:56 MCHC 34 % (32-34) 09/01/21 08:56 RDW 15.0 % (13.2-15.2) 09/01/21 08:56 Plt Count 229 K/mm3 (140-440) 09/01/21 08:56 Lymph % (Auto) 21.2 % (13.4-35.0) 09/01/21 08:56 [place] % (Auto) 7.1 % (0.0-7.3) 09/01/21 08:56 Eos % (Auto) 1.2 % (0.0-4.3) 09/01/21 08:56 Baso % (Auto) 0.8 % (0.0-1.8) 09/01/21 08:56 Lymph # (Auto) 2.2 K/mm3 (1.2-5.4) 09/01/21 08:56 [place] # (Auto) 0.7 K/mm3 (0.0-0.8) 09/01/21 08:56 Eos # (Auto) 0.1 K/mm3 (0.0-0.4) 09/01/21 08:56 Baso # (Auto) 0.1 K/mm3 (0.0-0.1) 09/01/21 08:56 Seg Neutrophils % 69.7 % (40.0-70.0) 09/01/21 08:56 Seg Neutrophils # 7.2 K/mm3 (1.8-7.7) 09/01/21 08:56 Sodium 140 mmol/L (137-145) 09/01/21 08:56 Potassium 4.4 mmol/L (3.6-5.0) 09/01/21 08:56 Chloride 101.8 mmol/L (98-107) 09/01/21 08:56 Carbon Dioxide 24 mmol/L (22-30) 09/01/21 08:56 Anion Gap 19 mmol/L 09/01/21 08:56 BUN 9 mg/dL (9-20) 09/01/21 08:56 Creatinine 0.7 mg/dL (0.8-1.3) L 09/01/21 08:56 Estimated GFR > 60 ml/min 09/01/21 08:56 BUN/Creatinine Ratio 13 % 09/01/21 08:56 Glucose 143 mg/dL (75-100) H 09/01/21 08:56 POC Glucose 114 mg/dL (70-105) H 09/05/21 06:15 Hemoglobin A1c 6.9 % (4-6) H 09/01/21 08:42 Calcium 9.6 mg/dL (8.4-10.2) 09/01/21 08:56 Total Bilirubin 0.40 mg/dL (0.1-1.2) 09/01/21 08:56 AST 12 units/L (5-40) 09/01/21 08:56 ALT 7 units/L (7-56) 09/01/21 08:56 Alkaline Phosphatase 117 units/L (35-129) 09/01/21 08:56 Total Protein 7.5 g/dL (6.3-8.2) 09/01/21 08:56 Albumin 4.4 g/dL (3.9-5) 09/01/21 08:56 Albumin/Globulin Ratio 1.4 % 09/01/21 08:56 Triglycerides 222 mg/dL (2-149) H 09/01/21 08:56 Cholesterol 233 mg/dL (50-199) H 09/01/21 08:56 LDL Cholesterol Direct 156 mg/dL (50-130) H 09/01/21 08:56 HDL Cholesterol 39 mg/dL (40-59) L 09/01/21 08:56 Cholesterol/HDL Ratio 5.97 % 09/01/21 08:56 TSH 1.100 mlU/mL (0.270-4.200) 09/01/21 08:56 Last Vital Signs Temp 98.3 F 09/04/21 19:07 Pulse 64 09/04/21 19:07 Resp 18 09/04/21 19:07 BP 111/72 09/04/21 19:07 Pulse Ox 99 09/04/21 19:07
[2021-09-05] MEDS: TRIHEXYPHENIDYL 2 MG TAB PO SCH ×2 (09:24→21:09)
[2021-09-05] MEDS: DONEPEZIL 10 MG TAB PO SCH (09:24)
[2021-09-05] MEDS: hydrOXYzine PAMOATE 25 MG CAP PO PRN (09:25)
[2021-09-05] MEDS: LORazepam 2 MG/ML VIAL IM PRN (11:41)
[2021-09-05] MEDS: risperiDONE 3 MG TAB PO SCH (21:09)
[2021-09-05] MEDS: traZODone 50 MG TAB PO SCH (21:09)
--- NOTE | 2021-09-06 09:06 | Progress Note ---
Subjective Date of service: 09/06/21 Subjective Comment: 09/02/2021: The patient was seen pacing the hallway. The patient reports feeling down sometimes. He said he lived [facility] the senior care for [facility] and would like to return there on discharge. He denies any current suicidal ideation and denies hallucinations. 09/03/2021: The patient was seen eating breakfast. He reports doing well. He is focused on discharge. He denies any current suicidal ideation and denies hallucinations. 09/04/2021: Patient seen this morning. He reports doing well and more interactive. He states sleep and appetite as good. The patient denies any current suicidal/homicidal ideation and denies hallucinations. 09/05/2021: He reports doing well. He states sleep and appetite as good. The patient denies any current suicidal/homicidal ideation and denies hallucinati ons. 09/06/2021: The patient is calm and states he is doing well. He reports mood as " happy" The patient denies any current suicidal/homicidal ideation and denies hallucinations. SOCIAL HISTORY Marital Status: Single Living Arrangements: lives in a senior care Employment Status: Retired Access to guns/weapons: Denies Education:12th grade History of Abuse: Denies Legal History: Denies REVIEW OF SYSTEMS Constitutional: Negative for weight loss ENT: Negative for stridor Respiratory: Negative for cough or hemoptysis All other systems reviewed and are negative MENTAL STATUS EXAMINATION General Appearance and Behavior: Age appropriate, good hygiene, wearing appropriate clothes. calm, cooperative, good eye contact Cooperation: Cooperative Psychomotor Behavior: Psychomotor normal Mood: "happy" Affect and affective range: Incongruent with stated mood Thought Process: Goal directed Thought Content: Not suicidal Speech: normal tone and pace Suicidal Ideation: Denies Homicidal Ideation: Denies Hallucinations: Denies Delusions: None elicited Impulse Control: Questionable Insight and Judgment: Limited insight and fair judgment Memory: Limited Attention: attentive Orientation: a/o to self Assessment (1) Schizophrenia Treatment Plan Patient admitted for inpatient psychiatric evaluation, medication adjustment and close monitoring The patient's behavior, mood, sleep and appetite will be closely monitored. Patient enrolled in individual and group therapeutic sessions and encouraged to attend. Patient provided with a safe and structured environment. Patient's physical health needs will be addressed by the Hospitalist. Hospitalist Consulted Labs including CBC, CMP, Lipid profile and Hemoglobin A1C levels ordered for baseline reference Social Assessment will be completed and the Pole Framer Machine will work with patient and family to ensure a suitable and safe disposition Medication adjustment will be made as clinically indicated Continue home medications Usual Wellness Denominational/Preservation: - Start Trazodone 50 mg po QHS & 50 mg po QHS PRN between 10 PM & 2 AM for insomnia - Start Melatonin 5 mg po QHS to promote circadian rhythm The patient agreed on the treatment plan, understood the risk, benefit, alternative treatment, potential consequence of no treatment, and gave informed consent. Estimated days: 3 Post hospital care: primary care provider, psychiatric provider Case staffed with Dr. Caballero Legal Status: Voluntary Reaction to Hospitalization: Accepting Medications and Allergies Medications and Allergies Allergies Allergy/AdvReac Type Severity Reaction Status Date / Time No Known Allergies Allergy Unverified 08/31/21 13:27 Home Medications Medication Instructions Recorded Confirmed Last Taken Type Lurasidone HCl [Latuda] 20 mg PO QAM 08/31/21 08/31/21 Unknown History Lurasidone HCl [Latuda] 60 mg PO 08/31/21 08/31/21 Unknown History donepeziL [Aricept] 10 mg PO QDAY 08/31/21 08/31/21 Unknown History risperiDONE [RisperDAL] 3 mg PO HS 08/31/21 08/31/21 Unknown History traZODone [Desyrel] 50 mg PO QHS 08/31/21 08/31/21 Unknown History trihexyphenidyL [Artane Tab] 2 mg PO BID 08/31/21 08/31/21 Unknown History Active Meds: Active Medications Donepezil HCl (Donepezil 10 Mg Tab) 10 mg PO QDAY [facility] Last Admin: 09/05/21 09:24 Dose: 10 mg Documented by: Hydroxyzine Pamoate (Hydroxyzine Pamoate 25 Mg Cap) 25 mg PO Q6H PRN PRN Reason: Anxiety Last Admin: 09/05/21 09:25 Dose: 25 mg Documented by: Lorazepam (Lorazepam 2 Mg/Ml Vial) 1 mg IM Q4H PRN PRN Reason: Anxiety Last Admin: 09/05/21 11:41 Dose: 1 mg Documented by: Risperidone (Risperidone 3 Mg Tab) 3 mg PO [facility] Last Admin: 09/05/21 21:09 Dose: 3 mg Documented by: Trazodone HCl (Trazodone 50 Mg Tab) 50 mg PO QHS [facility] Last Admin: 09/05/21 21:09 Dose: 50 mg Documented by: Trihexyphenidyl HCl (Trihexyphenidyl 2 Mg Tab) 2 mg PO BID [facility] Last Admin: 09/05/21 21:09 Dose: 2 mg Documented by: Results - Results Labs/Vitals: Laboratory Last Values WBC 10.3 K/mm3 (4.5-11.0) 09/01/21 08:56 RBC 5.16 M/mm3 (3.65-5.03) H 09/01/21 08:56 Hgb 16.2 gm/dl (11.8-15.2) H 09/01/21 08:56 Hct 47.9 % (35.5-45.6) H 09/01/21 08:56 MCV 93 fl (84-94) 09/01/21 08:56 MCH 32 pg (28-32) 09/01/21 08:56 MCHC 34 % (32-34) 09/01/21 08:56 RDW 15.0 % (13.2-15.2) 09/01/21 08:56 Plt Count 229 K/mm3 (140-440) 09/01/21 08:56 Lymph % (Auto) 21.2 % (13.4-35.0) 09/01/21 08:56 [place] % (Auto) 7.1 % (0.0-7.3) 09/01/21 08:56 Eos % (Auto) 1.2 % (0.0-4.3) 09/01/21 08:56 Baso % (Auto) 0.8 % (0.0-1.8) 09/01/21 08:56 Lymph # (Auto) 2.2 K/mm3 (1.2-5.4) 09/01/21 08:56 [place] # (Auto) 0.7 K/mm3 (0.0-0.8) 09/01/21 08:56 Eos # (Auto) 0.1 K/mm3 (0.0-0.4) 09/01/21 08:56 Baso # (Auto) 0.1 K/mm3 (0.0-0.1) 09/01/21 08:56 Seg Neutrophils % 69.7 % (40.0-70.0) 09/01/21 08:56 Seg Neutrophils # 7.2 K/mm3 (1.8-7.7) 09/01/21 08:56 Sodium 140 mmol/L (137-145) 09/01/21 08:56 Potassium 4.4 mmol/L (3.6-5.0) 09/01/21 08:56 Chloride 101.8 mmol/L (98-107) 09/01/21 08:56 Carbon Dioxide 24 mmol/L (22-30) 09/01/21 08:56 Anion Gap 19 mmol/L 09/01/21 08:56 BUN 9 mg/dL (9-20) 09/01/21 08:56 Creatinine 0.7 mg/dL (0.8-1.3) L 09/01/21 08:56 Estimated GFR > 60 ml/min 09/01/21 08:56 BUN/Creatinine Ratio 13 % 09/01/21 08:56 Glucose 143 mg/dL (75-100) H 09/01/21 08:56 POC Glucose 121 mg/dL (70-105) H 09/06/21 07:49 Hemoglobin A1c 6.9 % (4-6) H 09/01/21 08:42 Calcium 9.6 mg/dL (8.4-10.2) 09/01/21 08:56 Total Bilirubin 0.40 mg/dL (0.1-1.2) 09/01/21 08:56 AST 12 units/L (5-40) 09/01/21 08:56 ALT 7 units/L (7-56) 09/01/21 08:56 Alkaline Phosphatase 117 units/L (35-129) 09/01/21 08:56 Total Protein 7.5 g/dL (6.3-8.2) 09/01/21 08:56 Albumin 4.4 g/dL (3.9-5) 09/01/21 08:56 Albumin/Globulin Ratio 1.4 % 09/01/21 08:56 Triglycerides 222 mg/dL (2-149) H 09/01/21 08:56 Cholesterol 233 mg/dL (50-199) H 09/01/21 08:56 LDL Cholesterol Direct 156 mg/dL (50-130) H 09/01/21 08:56 HDL Cholesterol 39 mg/dL (40-59) L 09/01/21 08:56 Cholesterol/HDL Ratio 5.97 % 09/01/21 08:56 TSH 1.100 mlU/mL (0.270-4.200) 09/01/21 08:56 Last Vital Signs Temp 98.6 F 09/05/21 20:03 Pulse 63 09/05/21 20:03 Resp 18 09/05/21 20:03 BP 104/65 09/05/21 20:03 Pulse Ox 96 09/05/21 20:03
[2021-09-06] MEDS: TRIHEXYPHENIDYL 2 MG TAB PO SCH ×2 (09:24→21:17)
[2021-09-06] MEDS: DONEPEZIL 10 MG TAB PO SCH (09:24)
[2021-09-06] MEDS: hydrOXYzine PAMOATE 25 MG CAP PO PRN (17:10)
[2021-09-06] MEDS: traZODone 50 MG TAB PO SCH (21:17)
[2021-09-06] MEDS: risperiDONE 3 MG TAB PO SCH (21:17)
--- NOTE | 2021-09-07 08:00 | Progress Note ---
Subjective Date of service: 09/07/21 Subjective Comment: 09/02/2021: The patient was seen pacing the hallway. The patient reports feeling down sometimes. He said he lived at the [facility] for 10 years and would like to return there on discharge. He denies any current suicidal ideation and denies hallucinations. 09/03/2021: The patient was seen eating breakfast. He reports doing well. He is focused on discharge. He denies any current suicidal ideation and denies ravi lucinations. 09/04/2021: Patient seen this morning. He reports doing well and more interactive. He states sleep and appetite as good. The patient denies any current suicidal/homicidal ideation and denies hallucinations. 09/05/2021: He reports doing well. He states sleep and appetite as good. The patient denies any current suicidal/homicidal ideation and denies hallucinations. 09/06/2021: The patient is calm and states he is doing well. He reports mood as " happy" The patient denies any current suicidal/homicidal ideation and denies hallucinations. 09/07/2021: The patient reports doing well. He states sleep and appetite as good. The patient denies any current suicidal/homicidal ideation and denies hallucinations. SOCIAL HISTORY Marital Status: Single Living Arrangements: lives in a [facility] Employment Status: Retired Access to guns/weapons: Denies Education:12th grade History of Abuse: Denies Legal History: Denies REVIEW OF SYSTEMS Constitutional: Negative for weight loss ENT: Negative for stridor Respiratory: Negative for cough or hemoptysis All other systems reviewed and are negative MENTAL STATUS EXAMINATION General Appearance and Behavior: Age appropriate, good hygiene, wearing appropriate clothes. calm, cooperative, good eye contact Cooperation: Cooperative Psychomotor Behavior: Psychomotor normal Mood: "ok" Affect and affective range: Incongruent with stated mood Thought Process: Goal directed Thought Content: Not suicidal Speech: normal tone and pace Suicidal Ideation: Denies Homicidal Ideation: Denies Hallucinations: Denies Delusions: None elicited Impulse Control: Questionable Insight and Judgment: Limited insight and fair judgment Memory: Limited Attention: attentive Orientation: a/o to self Assessment (1) Schizophrenia Treatment Plan Patient admitted for inpatient psychiatric evaluation, medication adjustment and close monitoring The patient's behavior, mood, sleep and appetite will be closely monitored. Patient enrolled in individual and group therapeutic sessions and encouraged to attend. Patient provided with a safe and structured environment. Patient's physical health needs will be addressed by the Hospitalist. Hospitalist Consulted Labs including CBC, CMP, Lipid profile and Hemoglobin A1C levels ordered for baseline reference Social Assessment will be completed and the Sonography Technologist will work with patient and family to ensure a suitable and safe disposition Medication adjustment will be made as clinically indicated Continue home medications Usual Wellness Latter-Day/Preservation: - Start Trazodone 50 mg po QHS & 50 mg po QHS PRN between 10 PM & 2 AM for insomnia - Start Melatonin 5 mg po QHS to promote circadian rhythm The patient agreed on the treatment plan, understood the risk, benefit, alternative treatment, potential consequence of no treatment, and gave informed consent. Estimated days: 3 Post hospital care: primary care provider, psychiatric provider Case staffed with Dr. Caballero Legal Status: Voluntary Reaction to Hospitalization: Accepting Medications and Allergies Medications and Allergies Allergies Allergy/AdvReac Type Severity Reaction Status Date / Time No Known Allergies Allergy Unverified 08/31/21 13:27 Home Medications Medication Instructions Recorded Confirmed Last Taken Type Lurasidone HCl [Latuda] 20 mg PO QAM 08/31/21 08/31/21 Unknown History Lurasidone HCl [Latuda] 60 mg PO HS 08/31/21 08/31/21 Unknown History donepeziL [Aricept] 10 mg PO QDAY 08/31/21 08/31/21 Unknown History risperiDONE [RisperDAL] 3 mg PO HS 08/31/21 08/31/21 Unknown History traZODone [Desyrel] 50 mg PO QHS 08/31/21 08/31/21 Unknown History trihexyphenidyL [Artane Tab] 2 mg PO BID 08/31/21 08/31/21 Unknown History Active Meds: Active Medications Donepezil HCl (Donepezil 10 Mg Tab) 10 mg PO QDAY [facility] Last Admin: 09/06/21 09:24 Dose: 10 mg Documented by: Hydroxyzine Pamoate (Hydroxyzine Pamoate 25 Mg Cap) 25 mg PO Q6H PRN PRN Reason: Anxiety Last Admin: 09/06/21 17:10 Dose: 25 mg Documented by: Lorazepam (Lorazepam 2 Mg/Ml Vial) 1 mg IM Q4H PRN PRN Reason: Anxiety Last Admin: 09/05/21 11:41 Dose: 1 mg Documented by: Risperidone (Risperidone 3 Mg Tab) 3 mg PO HS [facility] Last Admin: 09/06/21 21:17 Dose: 3 mg Documented by: Trazodone HCl (Trazodone 50 Mg Tab) 50 mg PO QHS [facility] Last Admin: 09/06/21 21:17 Dose: 50 mg Documented by: Trihexyphenidyl HCl (Trihexyphenidyl 2 Mg Tab) 2 mg PO BID [facility] Last Admin: 09/06/21 21:17 Dose: 2 mg Documented by: Results - Results Labs/Vitals: Laboratory Last Values WBC 10.3 K/mm3 (4.5-11.0) 09/01/21 08:56 RBC 5.16 M/mm3 (3.65-5.03) H 09/01/21 08:56 Hgb 16.2 gm/dl (11.8-15.2) H 09/01/21 08:56 Hct 47.9 % (35.5-45.6) H 09/01/21 08:56 MCV 93 fl (84-94) 09/01/21 08:56 MCH 32 pg (28-32) 09/01/21 08:56 MCHC 34 % (32-34) 09/01/21 08:56 RDW 15.0 % (13.2-15.2) 09/01/21 08:56 Plt Count 229 K/mm3 (140-440) 09/01/21 08:56 Lymph % (Auto) 21.2 % (13.4-35.0) 09/01/21 08:56 [place] % (Auto) 7.1 % (0.0-7.3) 09/01/21 08:56 Eos % (Auto) 1.2 % (0.0-4.3) 09/01/21 08:56 Baso % (Auto) 0.8 % (0.0-1.8) 09/01/21 08:56 Lymph # (Auto) 2.2 K/mm3 (1.2-5.4) 09/01/21 08:56 [place] # (Auto) 0.7 K/mm3 (0.0-0.8) 09/01/21 08:56 Eos # (Auto) 0.1 K/mm3 (0.0-0.4) 09/01/21 08:56 Baso # (Auto) 0.1 K/mm3 (0.0-0.1) 09/01/21 08:56 Seg Neutrophils % 69.7 % (40.0-70.0) 09/01/21 08:56 Seg Neutrophils # 7.2 K/mm3 (1.8-7.7) 09/01/21 08:56 Sodium 140 mmol/L (137-145) 09/01/21 08:56 Potassium 4.4 mmol/L (3.6-5.0) 09/01/21 08:56 Chloride 101.8 mmol/L (98-107) 09/01/21 08:56 Carbon Dioxide 24 mmol/L (22-30) 09/01/21 08:56 Anion Gap 19 mmol/L 09/01/21 08:56 BUN 9 mg/dL (9-20) 09/01/21 08:56 Creatinine 0.7 mg/dL (0.8-1.3) L 09/01/21 08:56 Estimated GFR > 60 ml/min 09/01/21 08:56 BUN/Creatinine Ratio 13 % 09/01/21 08:56 Glucose 143 mg/dL (75-100) H 09/01/21 08:56 POC Glucose 104 mg/dL (70-105) 09/07/21 06:05 Hemoglobin A1c 6.9 % (4-6) H 09/01/21 08:42 Calcium 9.6 mg/dL (8.4-10.2) 09/01/21 08:56 Total Bilirubin 0.40 mg/dL (0.1-1.2) 09/01/21 08:56 AST 12 units/L (5-40) 09/01/21 08:56 ALT 7 units/L (7-56) 09/01/21 08:56 Alkaline Phosphatase 117 units/L (35-129) 09/01/21 08:56 Total Protein 7.5 g/dL (6.3-8.2) 09/01/21 08:56 Albumin 4.4 g/dL (3.9-5) 09/01/21 08:56 Albumin/Globulin Ratio 1.4 % 09/01/21 08:56 Triglycerides 222 mg/dL (2-149) H 09/01/21 08:56 Cholesterol 233 mg/dL (50-199) H 09/01/21 08:56 LDL Cholesterol Direct 156 mg/dL (50-130) H 09/01/21 08:56 HDL Cholesterol 39 mg/dL (40-59) L 09/01/21 08:56 Cholesterol/HDL Ratio 5.97 % 09/01/21 08:56 TSH 1.100 mlU/mL (0.270-4.200) 09/01/21 08:56 Last Vital Signs Temp 98.9 F 09/06/21 19:29 Pulse 57 L 09/06/21 19:29 Resp 18 09/06/21 19:29 BP 117/67 09/06/21 19:29 Pulse Ox 98 09/06/21 19:29
[2021-09-07] MEDS: TRIHEXYPHENIDYL 2 MG TAB PO SCH ×2 (09:10→22:06)
[2021-09-07] MEDS: DONEPEZIL 10 MG TAB PO SCH (09:11)
[2021-09-07] MEDS: hydrOXYzine PAMOATE 25 MG CAP PO PRN ×2 (13:12→19:25)
[2021-09-07] MEDS: risperiDONE 3 MG TAB PO SCH (22:06)
[2021-09-07] MEDS: traZODone 50 MG TAB PO SCH (22:06)
[2021-09-08] MEDS: DONEPEZIL 10 MG TAB PO SCH (09:04)
[2021-09-08] MEDS: TRIHEXYPHENIDYL 2 MG TAB PO SCH ×2 (09:04→21:44)
--- NOTE | 2021-09-08 10:22 | Progress Note ---
Subjective Date of service: 09/08/21 Principal diagnosis: schizophrenia Subjective Comment: The patient was seen today. Although, the patient states that he's doing alright, he appeared severely anxious, and preoccupied as if listening to something. He was slow to respond, and I had to ask him the questions several times. The nursing staff and SW state the patient paces a lot and was observed upset, pointing and having conversations with people who are not there. Reason for continued inpatient treatment: The patient is responding to internal stimuli, and severely anxious. He lacks family and social support in which to ascertain his baseline. This makes his discharge unsafe. Will need to adjust his medications and continue to watch his progress over the next couple of days in order to ensue safety upon discharge. REVIEW OF SYSTEMS Constitutional: Negative for weight loss ENT: Negative for stridor Respiratory: Negative for cough or hemoptysis All other systems reviewed and are negative MENTAL STATUS EXAMINATION General Appearance and Behavior: Age appropriate, good hygiene, wearing appropriate clothes. calm, cooperative, good eye contact Cooperation: Cooperative Psychomotor Behavior: Psychomotor normal Mood: "alright" Affect and affective range: Incongruent with stated mood Thought Process: Goal directed Thought Content: hallucinations Speech: normal tone and pace Suicidal Ideation: Denies Homicidal Ideation: Denies Hallucinations: auditory Delusions: None elicited Impulse Control: Questionable Insight and Judgment: Limited insight and fair judgment Memory: Limited Attention: attentive Orientation: a/o to self Assessment (1) Schizophrenia Treatment Plan Patient admitted for inpatient psychiatric evaluation, medication adjustment and close monitoring The patient's behavior, mood, sleep and appetite will be closely monitored. Patient enrolled in individual and group therapeutic sessions and encouraged to attend. Patient provided with a safe and structured environment. Patient's physical health needs will be addressed by the Hospitalist. Hospitalist Consulted Labs including CBC, CMP, Lipid profile and Hemoglobin A1C levels ordered for baseline reference Social Assessment will be completed and the Address Change Clerk will work with patient and family to ensure a suitable and safe disposition Medication adjustment will be made as clinically indicated Increased Risperidone 2mg po BID Start Klonopin 0.25mg po BID x 3 days Usual Wellness Holiness/Preservation: - Start Trazodone 50 mg po QHS & 50 mg po QHS PRN between 10 PM & 2 AM for insomnia - Start Melatonin 5 mg po QHS to promote circadian rhythm The patient agreed on the treatment plan, understood the risk, benefit, alternative treatment, potential consequence of no treatment, and gave informed consent. Estimated days: 3 Post hospital care: primary care provider, psychiatric provider Case staffed with Dr. Caballero Medications and Allergies Allergies Allergy/AdvReac Type Severity Reaction Status Date / Time No Known Allergies Allergy Unverified 08/31/21 13:27 Home Medications Medication Instructions Recorded Confirmed Last Taken Type Lurasidone HCl [Latuda] 20 mg PO QAM 08/31/21 08/31/21 Unknown History Lurasidone HCl [Latuda] 60 mg PO 08/31/21 08/31/21 Unknown History donepeziL [Aricept] 10 mg PO QDAY 08/31/21 08/31/21 Unknown History risperiDONE [RisperDAL] 3 mg PO 08/31/21 08/31/21 Unknown History traZODone [Desyrel] 50 mg PO QHS 08/31/21 08/31/21 Unknown History trihexyphenidyL [Artane Tab] 2 mg PO BID 08/31/21 08/31/21 Unknown History Active Meds: Active Medications Donepezil HCl (Donepezil 10 Mg Tab) 10 mg PO QDAY [facility] Last Admin: 09/08/21 09:04 Dose: 10 mg Documented by: Hydroxyzine Pamoate (Hydroxyzine Pamoate 25 Mg Cap) 25 mg PO Q6H PRN PRN Reason: Anxiety Last Admin: 09/07/21 19:25 Dose: 25 mg Documented by: Lorazepam (Lorazepam 2 Mg/Ml Vial) 1 mg IM Q4H PRN PRN Reason: Anxiety Last Admin: 09/05/21 11:41 Dose: 1 mg Documented by: Risperidone (Risperidone 3 Mg Tab) 3 mg PO [facility] Last Admin: 09/07/21 22:06 Dose: 3 mg Documented by: Trazodone HCl (Trazodone 50 Mg Tab) 50 mg PO QHS [facility] Last Admin: 09/07/21 22:06 Dose: 50 mg Documented by: Trihexyphenidyl HCl (Trihexyphenidyl 2 Mg Tab) 2 mg PO BID [facility] Last Admin: 09/08/21 09:04 Dose: 2 mg Documented by: Results - Results Labs/Vitals: Laboratory Last Values WBC 10.3 K/mm3 (4.5-11.0) 09/01/21 08:56 RBC 5.16 M/mm3 (3.65-5.03) H 09/01/21 08:56 Hgb 16.2 gm/dl (11.8-15.2) H 09/01/21 08:56 Hct 47.9 % (35.5-45.6) H 09/01/21 08:56 MCV 93 fl (84-94) 09/01/21 08:56 MCH 32 pg (28-32) 09/01/21 08:56 MCHC 34 % (32-34) 09/01/21 08:56 RDW 15.0 % (13.2-15.2) 09/01/21 08:56 Plt Count 229 K/mm3 (140-440) 09/01/21 08:56 Lymph % (Auto) 21.2 % (13.4-35.0) 09/01/21 08:56 [place] % (Auto) 7.1 % (0.0-7.3) 09/01/21 08:56 Eos % (Auto) 1.2 % (0.0-4.3) 09/01/21 08:56 Baso % (Auto) 0.8 % (0.0-1.8) 09/01/21 08:56 Lymph # (Auto) 2.2 K/mm3 (1.2-5.4) 09/01/21 08:56 [place] # (Auto) 0.7 K/mm3 (0.0-0.8) 09/01/21 08:56 Eos # (Auto) 0.1 K/mm3 (0.0-0.4) 09/01/21 08:56 Baso # (Auto) 0.1 K/mm3 (0.0-0.1) 09/01/21 08:56 Seg Neutrophils % 69.7 % (40.0-70.0) 09/01/21 08:56 Seg Neutrophils # 7.2 K/mm3 (1.8-7.7) 09/01/21 08:56 Sodium 140 mmol/L (137-145) 09/01/21 08:56 Potassium 4.4 mmol/L (3.6-5.0) 09/01/21 08:56 Chloride 101.8 mmol/L (98-107) 09/01/21 08:56 Carbon Dioxide 24 mmol/L (22-30) 09/01/21 08:56 Anion Gap 19 mmol/L 09/01/21 08:56 BUN 9 mg/dL (9-20) 09/01/21 08:56 Creatinine 0.7 mg/dL (0.8-1.3) L 09/01/21 08:56 Estimated GFR > 60 ml/min 09/01/21 08:56 BUN/Creatinine Ratio 13 % 09/01/21 08:56 Glucose 143 mg/dL (75-100) H 09/01/21 08:56 POC Glucose 101 mg/dL (70-105) 09/08/21 06:14 Hemoglobin A1c 6.9 % (4-6) H 09/01/21 08:42 Calcium 9.6 mg/dL (8.4-10.2) 09/01/21 08:56 Total Bilirubin 0.40 mg/dL (0.1-1.2) 09/01/21 08:56 AST 12 units/L (5-40) 09/01/21 08:56 ALT 7 units/L (7-56) 09/01/21 08:56 Alkaline Phosphatase 117 units/L (35-129) 09/01/21 08:56 Total Protein 7.5 g/dL (6.3-8.2) 09/01/21 08:56 Albumin 4.4 g/dL (3.9-5) 09/01/21 08:56 Albumin/Globulin Ratio 1.4 % 09/01/21 08:56 Triglycerides 222 mg/dL (2-149) H 09/01/21 08:56 Cholesterol 233 mg/dL (50-199) H 09/01/21 08:56 LDL Cholesterol Direct 156 mg/dL (50-130) H 09/01/21 08:56 HDL Cholesterol 39 mg/dL (40-59) L 09/01/21 08:56 Cholesterol/HDL Ratio 5.97 % 09/01/21 08:56 TSH 1.100 mlU/mL (0.270-4.200) 09/01/21 08:56 Last Vital Signs Temp 99.0 F 09/08/21 06:51 Pulse 61 09/08/21 06:51 Resp 18 09/08/21 06:51 BP 99/64 09/08/21 06:51 Pulse Ox 92 09/08/21 06:51
[2021-09-08] MEDS: clonazePAM 0.5 MG TAB PO SCH ×2 (10:46→21:45)
--- NOTE | 2021-09-08 16:58 | Progress Note ---
Assessment and Plan - Patient Problems (1) Depression Current Visit: Yes Status: Acute Plan to address problem: Continue current management, supportive care. (2) Bipolar disorder Current Visit: Yes Status: Acute Plan to address problem: Continue medical management (3) Hyperlipidemia Current Visit: Yes Status: Acute Qualifiers: Hyperlipidemia type: mixed hyperlipidemia Qualified Code(s): E78.2 - Mixed hyperlipidemia Plan to address problem: Low-cholesterol diet, supportive care, repeat lipid panel in 30 to 45 days after trial of low-cholesterol diet. Statin therapy as clinically indicated. History Interval history: 51 YO Male with Bipolar Disorder, Depression admitted to [facility] for psychiatric stabilization. Patient seen and evaluated in the recreation room. No reported nursing events. Pt cooperative. Hospitalist Physical - Constitutional Vitals: Temp Pulse Resp BP Pulse Ox 99.0 F 61 18 99/64 92 09/08/21 06:51 09/08/21 06:51 09/08/21 06:51 09/08/21 06:51 09/08/21 06:51 General appearance: Present: no acute distress, well-nourished - EENT Eyes: Present: PERRL, EOM intact ENT: hearing intact - Neck Neck: Present: supple - Respiratory Respiratory: bilateral: CTA - Cardiovascular Rhythm: regular Heart Sounds: Present: S1 & S2 - Extremities Extremities: no ischemia Peripheral Pulses: within normal limits - Abdominal General gastrointestinal: soft, non-tender, non-distended - Integumentary Integumentary: Present: clear, dry - Psychiatric Psychiatric: cooperative - Neurologic Neurologic: CNII-XII intact Results - Labs CBC & Chem 7: 09/01/21 08:56 09/01/21 08:56 Labs: Laboratory Last Values WBC 10.3 K/mm3 (4.5-11.0) 09/01/21 08:56 RBC 5.16 M/mm3 (3.65-5.03) H 09/01/21 08:56 Hgb 16.2 gm/dl (11.8-15.2) H 09/01/21 08:56 Hct 47.9 % (35.5-45.6) H 09/01/21 08:56 MCV 93 fl (84-94) 09/01/21 08:56 MCH 32 pg (28-32) 09/01/21 08:56 MCHC 34 % (32-34) 09/01/21 08:56 RDW 15.0 % (13.2-15.2) 09/01/21 08:56 Plt Count 229 K/mm3 (140-440) 09/01/21 08:56 Lymph % (Auto) 21.2 % (13.4-35.0) 09/01/21 08:56 [place] % (Auto) 7.1 % (0.0-7.3) 09/01/21 08:56 Eos % (Auto) 1.2 % (0.0-4.3) 09/01/21 08:56 Baso % (Auto) 0.8 % (0.0-1.8) 09/01/21 08:56 Lymph # (Auto) 2.2 K/mm3 (1.2-5.4) 09/01/21 08:56 [place] # (Auto) 0.7 K/mm3 (0.0-0.8) 09/01/21 08:56 Eos # (Auto) 0.1 K/mm3 (0.0-0.4) 09/01/21 08:56 Baso # (Auto) 0.1 K/mm3 (0.0-0.1) 09/01/21 08:56 Seg Neutrophils % 69.7 % (40.0-70.0) 09/01/21 08:56 Seg Neutrophils # 7.2 K/mm3 (1.8-7.7) 09/01/21 08:56 Sodium 140 mmol/L (137-145) 09/01/21 08:56 Potassium 4.4 mmol/L (3.6-5.0) 09/01/21 08:56 Chloride 101.8 mmol/L (98-107) 09/01/21 08:56 Carbon Dioxide 24 mmol/L (22-30) 09/01/21 08:56 Anion Gap 19 mmol/L 09/01/21 08:56 BUN 9 mg/dL (9-20) 09/01/21 08:56 Creatinine 0.7 mg/dL (0.8-1.3) L 09/01/21 08:56 Estimated GFR > 60 ml/min 09/01/21 08:56 BUN/Creatinine Ratio 13 % 09/01/21 08:56 Glucose 143 mg/dL (75-100) H 09/01/21 08:56 POC Glucose 101 mg/dL (70-105) 09/08/21 06:14 Hemoglobin A1c 6.9 % (4-6) H 09/01/21 08:42 Calcium 9.6 mg/dL (8.4-10.2) 09/01/21 08:56 Total Bilirubin 0.40 mg/dL (0.1-1.2) 09/01/21 08:56 AST 12 units/L (5-40) 09/01/21 08:56 ALT 7 units/L (7-56) 09/01/21 08:56 Alkaline Phosphatase 117 units/L (35-129) 09/01/21 08:56 Total Protein 7.5 g/dL (6.3-8.2) 09/01/21 08:56 Albumin 4.4 g/dL (3.9-5) 09/01/21 08:56 Albumin/Globulin Ratio 1.4 % 09/01/21 08:56 Triglycerides 222 mg/dL (2-149) H 09/01/21 08:56 Cholesterol 233 mg/dL (50-199) H 09/01/21 08:56 LDL Cholesterol Direct 156 mg/dL (50-130) H 09/01/21 08:56 HDL Cholesterol 39 mg/dL (40-59) L 09/01/21 08:56 Cholesterol/HDL Ratio 5.97 % 09/01/21 08:56 TSH 1.100 mlU/mL (0.270-4.200) 09/01/21 08:56 Rodriguez/IV: Voiding Method Toilet Active Medications - Current Medications Current Medications: Generic Name Dose Route Start Last Admin Trade Name Freq PRN Reason Stop Dose Admin Clonazepam 0.25 mg 09/08/21 11:00 09/08/21 10:46 Clonazepam 0.5 Mg Tab PO 09/11/21 06:00 0.25 mg BID LASHAE Administration Donepezil HCl 10 mg 09/01/21 10:00 09/08/21 09:04 Donepezil 10 Mg Tab PO 10 mg QDAY LASHAE Administration Hydroxyzine Pamoate 25 mg 09/02/21 11:00 09/07/21 19:25 Hydroxyzine Pamoate 25 Mg Cap PO 25 mg Q6H PRN Administration Anxiety Lorazepam 1 mg 09/01/21 14:00 09/05/21 11:41 Lorazepam 2 Mg/Ml Vial IM 1 mg Q4H PRN Administration Anxiety Risperidone 2 mg 09/08/21 22:00 Risperidone 1 Mg Tab PO BID LASHAE Trazodone HCl 50 mg 09/01/21 22:00 09/07/21 22:06 Trazodone 50 Mg Tab PO 50 mg QHS LASHAE Administration Trihexyphenidyl HCl 2 mg 09/01/21 10:00 09/08/21 09:04 Trihexyphenidyl 2 Mg Tab PO 2 mg BID LASHAE Administration Nutrition/Malnutrition Assess - Dietary Evaluation Nutrition/Malnutrition Findings: Nutrition Notes Start: 09/07/21 11:01 Freq: Status: Active Protocol: Document 09/07/21 11:01 GB (Rec: 09/07/21 11:08 GB [id number]) Nutrition Notes Need for Assessment generated from: LOS Initial or Follow up Assessment Other Pertinent Diagnosis schizophrenia Current Diet regular (low cholesterol) Labs/Tests 09/01: creatinine 0.7, glucose 147, Tg 222, Cholesterol 233 POC glucose showing improvement Pertinent Medications reviewed Height 5 ft 10 in Weight 79.5 kg [place] Body Weight (kg) 75.45 BMI 25.1 Weight change and time frame Admit No reported changes upon admission Weight Status Appropriate Subjective/Other Information Per MD note 09/07: good appetite, good sleep Last BM: 09/05 PO intake documented at 100% Percent of energy/protein needs met: EEN met 100% with current PO intake Burn Absent Trauma Absent GI Symptoms None Food Allergy No Skin Integrity/Comment No reported complications Current % PO Good (75-100%) Minimum of two criteria No #1 Nutrition Diagnosis No nutrition diagnosis at this time As Evidenced by Signs and Symptoms Good PO, no reported skin complications, no reported significant changes in weight Is patient on ventilator? No Is Patient Ambulatory and/or Out of Bed Yes REE-([facility]-ambulatory/OOB) [ 2146.625 [id number]] Kcal/Kg value to use for calculation 25 Approximate Energy Requirements Using 1988 kcal/Kg Calculation Used for Recommendations Kcal/kg Additional Notes Protein 0.8-1g/kg @ 80k- 80g Fluids: 1 ml/kcal or per MD Nutrition Intervention Change Diet Order: continue Nutrition Support: n/a Add Supplement/Snack (indicate name/kcal n/a /protein ) Goal #1 PO intake to maintain 75% or greater daily for LOS Follow-Up By: 10/10/21 Revisit per MD consult or patient Sign Off request:
[2021-09-08] MEDS: traZODone 50 MG TAB PO SCH (21:45)
[2021-09-08] MEDS: risperiDONE 1 MG TAB PO SCH (21:46)
[2021-09-09] MEDS: TRIHEXYPHENIDYL 2 MG TAB PO SCH ×2 (09:01→21:08)
[2021-09-09] MEDS: risperiDONE 1 MG TAB PO SCH ×2 (09:01→21:08)
[2021-09-09] MEDS: hydrOXYzine PAMOATE 25 MG CAP PO PRN ×2 (09:02→21:08)
[2021-09-09] MEDS: DONEPEZIL 10 MG TAB PO SCH (09:02)
[2021-09-09] MEDS: clonazePAM 0.5 MG TAB PO SCH ×2 (09:02→21:08)
--- NOTE | 2021-09-09 10:51 | Progress Note ---
Subjective Date of service: 09/09/21 Principal diagnosis: schizophrenia Subjective Comment: The patient was seen today. He is more calm than yesterday. He says he's "dong just fine." He denies SI/HHI or hallucinations of any kind. The patient's medications were adjusted yesterday and appear to be working. The nursing staff says the patient has been calm, and cooperative, and they hadn't witnessed the patient hallucinating throughout night. Reason for continued inpatient treatment: The patient is responding to internal stimuli, and severely anxious at times, but appears to be improving. The sexual assault social worker was able to speak with social support. Will continue medications and watch his progress over the next day or two in order to ensue safety upon discharge. REVIEW OF SYSTEMS Constitutional: Negative for weight loss ENT: Negative for stridor Respiratory: Negative for cough or hemoptysis All other systems reviewed and are negative MENTAL STATUS EXAMINATION General Appearance and Behavior: Age appropriate, good hygiene, wearing appropriate clothes. calm, cooperative, good eye contact Cooperation: Cooperative Psychomotor Behavior: Psychomotor normal Mood: "fine" Affect and affective range:congruent with stated mood Thought Process: Goal directed Thought Content: hallucinations Speech: normal tone and pace Suicidal Ideation: Denies Homicidal Ideation: Denies Hallucinations: Denies Delusions: None elicited Impulse Control: Questionable Insight and Judgment: Limited insight and fair judgment Memory: Limited Attention: attentive Orientation: a/o to self Assessment (1) Schizophrenia Treatment Plan Patient admitted for inpatient psychiatric evaluation, medication adjustment and close monitoring The patient's behavior, mood, sleep and appetite will be closely monitored. Patient enrolled in individual and group therapeutic sessions and encouraged to attend. Patient provided with a safe and structured environment. Patient's physical health needs will be addressed by the Hospitalist. Hospitalist Consulted Labs including CBC, CMP, Lipid profile and Hemoglobin A1C levels ordered for baseline reference Social Assessment will be completed and the Dry Boss will work with patient and family to ensure a suitable and safe disposition Medication adjustment will be made as clinically indicated Increased Risperidone 2mg po BID yesrerday Klonopin 0.25mg po BID x 3 days yesterday No changes made today Usual Wellness Anglican/Preservation: - Start Trazodone 50 mg po QHS & 50 mg po QHS PRN between 10 PM & 2 AM for insomnia - Start Melatonin 5 mg po QHS to promote circadian rhythm The patient agreed on the treatment plan, understood the risk, benefit, alternative treatment, potential consequence of no treatment, and gave informed consent. Estimated days: 3 Post hospital care: primary care provider, psychiatric provider Case staffed with Dr. Caballero Medications and Allergies Allergies Allergy/AdvReac Type Severity Reaction Status Date / Time No Known Allergies Allergy Unverified 08/31/21 13:27 Home Medications Medication Instructions Recorded Confirmed Last Taken Type Lurasidone HCl [Latuda] 20 mg PO QAM 08/31/21 08/31/21 Unknown History Lurasidone HCl [Latuda] 60 mg PO HS 08/31/21 08/31/21 Unknown History donepeziL [Aricept] 10 mg PO QDAY 08/31/21 08/31/21 Unknown History risperiDONE [RisperDAL] 3 mg PO HS 08/31/21 08/31/21 Unknown History traZODone [Desyrel] 50 mg PO QHS 08/31/21 08/31/21 Unknown History trihexyphenidyL [Artane Tab] 2 mg PO BID 08/31/21 08/31/21 Unknown History Active Meds: Active Medications Clonazepam (Clonazepam 0.5 Mg Tab) 0.25 mg PO BID [facility] Stop: 09/11/21 06:00 Last Admin: 09/09/21 09:02 Dose: 0.25 mg Documented by: Donepezil HCl (Donepezil 10 Mg Tab) 10 mg PO QDAY [facility] Last Admin: 09/09/21 09:02 Dose: 10 mg Documented by: Hydroxyzine Pamoate (Hydroxyzine Pamoate 25 Mg Cap) 25 mg PO Q6H PRN PRN Reason: Anxiety Last Admin: 09/09/21 09:02 Dose: 25 mg Documented by: Lorazepam (Lorazepam 2 Mg/Ml Vial) 1 mg IM Q4H PRN PRN Reason: Anxiety Last Admin: 09/05/21 11:41 Dose: 1 mg Documented by: Risperidone (Risperidone 1 Mg Tab) 2 mg PO BID [facility] Last Admin: 09/09/21 09:01 Dose: 2 mg Documented by: Trazodone HCl (Trazodone 50 Mg Tab) 50 mg PO QHS [facility] Last Admin: 09/08/21 21:45 Dose: 50 mg Documented by: Trihexyphenidyl HCl (Trihexyphenidyl 2 Mg Tab) 2 mg PO BID [facility] Last Admin: 09/09/21 09:01 Dose: 2 mg Documented by: Results - Results Labs/Vitals: Laboratory Last Values WBC 10.3 K/mm3 (4.5-11.0) 09/01/21 08:56 RBC 5.16 M/mm3 (3.65-5.03) H 09/01/21 08:56 Hgb 16.2 gm/dl (11.8-15.2) H 09/01/21 08:56 Hct 47.9 % (35.5-45.6) H 09/01/21 08:56 MCV 93 fl (84-94) 09/01/21 08:56 MCH 32 pg (28-32) 09/01/21 08:56 MCHC 34 % (32-34) 09/01/21 08:56 RDW 15.0 % (13.2-15.2) 09/01/21 08:56 Plt Count 229 K/mm3 (140-440) 09/01/21 08:56 Lymph % (Auto) 21.2 % (13.4-35.0) 09/01/21 08:56 [place] % (Auto) 7.1 % (0.0-7.3) 09/01/21 08:56 Eos % (Auto) 1.2 % (0.0-4.3) 09/01/21 08:56 Baso % (Auto) 0.8 % (0.0-1.8) 09/01/21 08:56 Lymph # (Auto) 2.2 K/mm3 (1.2-5.4) 09/01/21 08:56 [place] # (Auto) 0.7 K/mm3 (0.0-0.8) 09/01/21 08:56 Eos # (Auto) 0.1 K/mm3 (0.0-0.4) 09/01/21 08:56 Baso # (Auto) 0.1 K/mm3 (0.0-0.1) 09/01/21 08:56 Seg Neutrophils % 69.7 % (40.0-70.0) 09/01/21 08:56 Seg Neutrophils # 7.2 K/mm3 (1.8-7.7) 09/01/21 08:56 Sodium 140 mmol/L (137-145) 09/01/21 08:56 Potassium 4.4 mmol/L (3.6-5.0) 09/01/21 08:56 Chloride 101.8 mmol/L (98-107) 09/01/21 08:56 Carbon Dioxide 24 mmol/L (22-30) 09/01/21 08:56 Anion Gap 19 mmol/L 09/01/21 08:56 BUN 9 mg/dL (9-20) 09/01/21 08:56 Creatinine 0.7 mg/dL (0.8-1.3) L 09/01/21 08:56 Estimated GFR > 60 ml/min 09/01/21 08:56 BUN/Creatinine Ratio 13 % 09/01/21 08:56 Glucose 143 mg/dL (75-100) H 09/01/21 08:56 POC Glucose 91 mg/dL (70-105) 09/09/21 06:22 Hemoglobin A1c 6.9 % (4-6) H 09/01/21 08:42 Calcium 9.6 mg/dL (8.4-10.2) 09/01/21 08:56 Total Bilirubin 0.40 mg/dL (0.1-1.2) 09/01/21 08:56 AST 12 units/L (5-40) 09/01/21 08:56 ALT 7 units/L (7-56) 09/01/21 08:56 Alkaline Phosphatase 117 units/L (35-129) 09/01/21 08:56 Total Protein 7.5 g/dL (6.3-8.2) 09/01/21 08:56 Albumin 4.4 g/dL (3.9-5) 09/01/21 08:56 Albumin/Globulin Ratio 1.4 % 09/01/21 08:56 Triglycerides 222 mg/dL (2-149) H 09/01/21 08:56 Cholesterol 233 mg/dL (50-199) H 09/01/21 08:56 LDL Cholesterol Direct 156 mg/dL (50-130) H 09/01/21 08:56 HDL Cholesterol 39 mg/dL (40-59) L 09/01/21 08:56 Cholesterol/HDL Ratio 5.97 % 09/01/21 08:56 TSH 1.100 mlU/mL (0.270-4.200) 09/01/21 08:56 Last Vital Signs Temp 98.4 F 09/08/21 20:29 Pulse 61 09/08/21 06:51 Resp 18 09/08/21 20:29 BP 109/64 09/08/21 20:29 Pulse Ox 92 09/08/21 06:51
[2021-09-09] MEDS: traZODone 50 MG TAB PO SCH (21:08)
[2021-09-10] MEDS: clonazePAM 0.5 MG TAB PO SCH ×2 (09:00→21:10)
[2021-09-10] MEDS: risperiDONE 1 MG TAB PO SCH ×2 (09:00→21:10)
[2021-09-10] MEDS: DONEPEZIL 10 MG TAB PO SCH (09:00)
[2021-09-10] MEDS: TRIHEXYPHENIDYL 2 MG TAB PO SCH ×2 (09:00→21:11)
--- NOTE | 2021-09-10 10:06 | Progress Note ---
Subjective Date of service: 09/10/21 Principal diagnosis: schizophrenia Subjective Comment: The patient was seen today. He is calm and cooperative. He denies SI/HI. He says he slept "a little better." He denies hallucinations of any kind. He denies SI/HI. Reason for continued inpatient treatment: The patient appears to be improving. The high school social science teacher was able to speak with social support. Will continue medications and watch his progress over the next day or two in order to ensue safety upon discharge. REVIEW OF SYSTEMS Constitutional: Negative for weight loss ENT: Negative for stridor Respiratory: Negative for cough or hemoptysis All other systems reviewed and are negative MENTAL STATUS EXAMINATION General Appearance and Behavior: Age appropriate, good hygiene, wearing appropriate clothes. calm, cooperative, good eye contact Cooperation: Cooperative Psychomotor Behavior: Psychomotor normal Mood: "fine" Affect and affective range:congruent with stated mood Thought Process: Goal directed Thought Content: hallucinations Speech: normal tone and pace Suicidal Ideation: Denies Homicidal Ideation: Denies Hallucinations: Denies Delusions: None elicited Impulse Control: Questionable Insight and Judgment: Limited insight and fair judgment Memory: Limited Attention: attentive Orientation: a/o to self Assessment (1) Schizophrenia Treatment Plan Patient admitted for inpatient psychiatric evaluation, medication adjustment and close monitoring The patient's behavior, mood, sleep and appetite will be closely monitored. Patient enrolled in individual and group therapeutic sessions and encouraged to attend. Patient provided with a safe and structured environment. Patient's physical health needs will be addressed by the Hospitalist. Hospitalist Consulted Labs including CBC, CMP, Lipid profile and Hemoglobin A1C levels ordered for baseline reference Social Assessment will be completed and the Architectural Technologist will work with patient and family to ensure a suitable and safe disposition Medication adjustment will be made as clinically indicated No changes made today Usual Wellness Worship/Preservation: - Start Trazodone 50 mg po QHS & 50 mg po QHS PRN between 10 PM & 2 AM for insomnia - Start Melatonin 5 mg po QHS to promote circadian rhythm The patient agreed on the treatment plan, understood the risk, benefit, alternative treatment, potential consequence of no treatment, and gave informed consent. Estimated days: 3 Post hospital care: primary care provider, psychiatric provider Case staffed with Dr. Caballero Medications and Allergies Allergies Allergy/AdvReac Type Severity Reaction Status Date / Time No Known Allergies Allergy Unverified 08/31/21 13:27 Home Medications Medication Instructions Recorded Confirmed Last Taken Type Lurasidone HCl [Latuda] 20 mg PO QAM 08/31/21 08/31/21 Unknown History Lurasidone HCl [Latuda] 60 mg PO HS 08/31/21 08/31/21 Unknown History donepeziL [Aricept] 10 mg PO QDAY 08/31/21 08/31/21 Unknown History risperiDONE [RisperDAL] 3 mg PO HS 08/31/21 08/31/21 Unknown History traZODone [Desyrel] 50 mg PO QHS 08/31/21 08/31/21 Unknown History trihexyphenidyL [Artane Tab] 2 mg PO BID 08/31/21 08/31/21 Unknown History Active Meds: Active Medications Clonazepam (Clonazepam 0.5 Mg Tab) 0.25 mg PO BID [facility] Stop: 09/11/21 06:00 Last Admin: 09/10/21 09:00 Dose: 0.25 mg Documented by: Donepezil HCl (Donepezil 10 Mg Tab) 10 mg PO QDAY [facility] Last Admin: 09/10/21 09:00 Dose: 10 mg Documented by: Hydroxyzine Pamoate (Hydroxyzine Pamoate 25 Mg Cap) 25 mg PO Q6H PRN PRN Reason: Anxiety Last Admin: 09/09/21 21:08 Dose: 25 mg Documented by: Lorazepam (Lorazepam 2 Mg/Ml Vial) 1 mg IM Q4H PRN PRN Reason: Anxiety Last Admin: 09/05/21 11:41 Dose: 1 mg Documented by: Risperidone (Risperidone 1 Mg Tab) 2 mg PO BID [facility] Last Admin: 09/10/21 09:00 Dose: 2 mg Documented by: Trazodone HCl (Trazodone 50 Mg Tab) 50 mg PO QHS [facility] Last Admin: 09/09/21 21:08 Dose: 50 mg Documented by: Trihexyphenidyl HCl (Trihexyphenidyl 2 Mg Tab) 2 mg PO BID [facility] Last Admin: 09/10/21 09:00 Dose: 2 mg Documented by: Results - Results Labs/Vitals: Laboratory Last Values WBC 10.3 K/mm3 (4.5-11.0) 09/01/21 08:56 RBC 5.16 M/mm3 (3.65-5.03) H 09/01/21 08:56 Hgb 16.2 gm/dl (11.8-15.2) H 09/01/21 08:56 Hct 47.9 % (35.5-45.6) H 09/01/21 08:56 MCV 93 fl (84-94) 09/01/21 08:56 MCH 32 pg (28-32) 09/01/21 08:56 MCHC 34 % (32-34) 09/01/21 08:56 RDW 15.0 % (13.2-15.2) 09/01/21 08:56 Plt Count 229 K/mm3 (140-440) 09/01/21 08:56 Lymph % (Auto) 21.2 % (13.4-35.0) 09/01/21 08:56 [place] % (Auto) 7.1 % (0.0-7.3) 09/01/21 08:56 Eos % (Auto) 1.2 % (0.0-4.3) 09/01/21 08:56 Baso % (Auto) 0.8 % (0.0-1.8) 09/01/21 08:56 Lymph # (Auto) 2.2 K/mm3 (1.2-5.4) 09/01/21 08:56 [place] # (Auto) 0.7 K/mm3 (0.0-0.8) 09/01/21 08:56 Eos # (Auto) 0.1 K/mm3 (0.0-0.4) 09/01/21 08:56 Baso # (Auto) 0.1 K/mm3 (0.0-0.1) 09/01/21 08:56 Seg Neutrophils % 69.7 % (40.0-70.0) 09/01/21 08:56 Seg Neutrophils # 7.2 K/mm3 (1.8-7.7) 09/01/21 08:56 Sodium 140 mmol/L (137-145) 09/01/21 08:56 Potassium 4.4 mmol/L (3.6-5.0) 09/01/21 08:56 Chloride 101.8 mmol/L (98-107) 09/01/21 08:56 Carbon Dioxide 24 mmol/L (22-30) 09/01/21 08:56 Anion Gap 19 mmol/L 09/01/21 08:56 BUN 9 mg/dL (9-20) 09/01/21 08:56 Creatinine 0.7 mg/dL (0.8-1.3) L 09/01/21 08:56 Estimated GFR > 60 ml/min 09/01/21 08:56 BUN/Creatinine Ratio 13 % 09/01/21 08:56 Glucose 143 mg/dL (75-100) H 09/01/21 08:56 POC Glucose 94 mg/dL (70-105) 09/10/21 06:10 Hemoglobin A1c 6.9 % (4-6) H 09/01/21 08:42 Calcium 9.6 mg/dL (8.4-10.2) 09/01/21 08:56 Total Bilirubin 0.40 mg/dL (0.1-1.2) 09/01/21 08:56 AST 12 units/L (5-40) 09/01/21 08:56 ALT 7 units/L (7-56) 09/01/21 08:56 Alkaline Phosphatase 117 units/L (35-129) 09/01/21 08:56 Total Protein 7.5 g/dL (6.3-8.2) 09/01/21 08:56 Albumin 4.4 g/dL (3.9-5) 09/01/21 08:56 Albumin/Globulin Ratio 1.4 % 09/01/21 08:56 Triglycerides 222 mg/dL (2-149) H 09/01/21 08:56 Cholesterol 233 mg/dL (50-199) H 09/01/21 08:56 LDL Cholesterol Direct 156 mg/dL (50-130) H 09/01/21 08:56 HDL Cholesterol 39 mg/dL (40-59) L 09/01/21 08:56 Cholesterol/HDL Ratio 5.97 % 09/01/21 08:56 TSH 1.100 mlU/mL (0.270-4.200) 09/01/21 08:56 Last Vital Signs Temp 98.3 F 09/09/21 19:50 Pulse 55 L 09/09/21 19:50 Resp 18 09/09/21 19:50 BP 97/59 09/09/21 19:50 Pulse Ox 97 09/09/21 19:50
--- NOTE | 2021-09-10 18:21 | Progress Note ---
Assessment and Plan - Patient Problems (1) Depression Current Visit: Yes Status: Acute Plan to address problem: Continue current management, supportive care. (2) Bipolar disorder Current Visit: Yes Status: Acute Plan to address problem: Continue medical management (3) Hyperlipidemia Current Visit: Yes Status: Acute Qualifiers: Hyperlipidemia type: mixed hyperlipidemia Qualified Code(s): E78.2 - Mixed hyperlipidemia Plan to address problem: Low-cholesterol diet, supportive care, repeat lipid panel in 30 to 45 days after trial of low-cholesterol diet. Statin therapy as clinically indicated. History Interval history: 51 YO Male with Bipolar Disorder, Depression admitted to [facility] for psychiatric stabilization. Patient seen and evaluated in the recreation room. No reported nursing events. Pt cooperative. Hospitalist Physical - Constitutional Vitals: Temp Pulse Resp BP Pulse Ox 97.8 F 74 18 106/61 99 09/10/21 11:05 09/10/21 11:05 09/10/21 11:05 09/10/21 11:05 09/10/21 11:05 General appearance: Present: no acute distress, well-nourished - EENT Eyes: Present: PERRL, EOM intact ENT: hearing intact - Neck Neck: Present: supple - Respiratory Respiratory effort: normal Respiratory: bilateral: CTA - Cardiovascular Rhythm: regular Heart Sounds: Present: S1 & S2 - Extremities Extremities: no ischemia Peripheral Pulses: within normal limits - Abdominal General gastrointestinal: soft, non-tender, non-distended - Integumentary Integumentary: Present: clear, dry - Psychiatric Psychiatric: cooperative - Neurologic Neurologic: CNII-XII intact Results - Labs CBC & Chem 7: 09/01/21 08:56 09/01/21 08:56 Labs: Laboratory Last Values WBC 10.3 K/mm3 (4.5-11.0) 09/01/21 08:56 RBC 5.16 M/mm3 (3.65-5.03) H 09/01/21 08:56 Hgb 16.2 gm/dl (11.8-15.2) H 09/01/21 08:56 Hct 47.9 % (35.5-45.6) H 09/01/21 08:56 MCV 93 fl (84-94) 09/01/21 08:56 MCH 32 pg (28-32) 09/01/21 08:56 MCHC 34 % (32-34) 09/01/21 08:56 RDW 15.0 % (13.2-15.2) 09/01/21 08:56 Plt Count 229 K/mm3 (140-440) 09/01/21 08:56 Lymph % (Auto) 21.2 % (13.4-35.0) 09/01/21 08:56 [place] % (Auto) 7.1 % (0.0-7.3) 09/01/21 08:56 Eos % (Auto) 1.2 % (0.0-4.3) 09/01/21 08:56 Baso % (Auto) 0.8 % (0.0-1.8) 09/01/21 08:56 Lymph # (Auto) 2.2 K/mm3 (1.2-5.4) 09/01/21 08:56 [place] # (Auto) 0.7 K/mm3 (0.0-0.8) 09/01/21 08:56 Eos # (Auto) 0.1 K/mm3 (0.0-0.4) 09/01/21 08:56 Baso # (Auto) 0.1 K/mm3 (0.0-0.1) 09/01/21 08:56 Seg Neutrophils % 69.7 % (40.0-70.0) 09/01/21 08:56 Seg Neutrophils # 7.2 K/mm3 (1.8-7.7) 09/01/21 08:56 Sodium 140 mmol/L (137-145) 09/01/21 08:56 Potassium 4.4 mmol/L (3.6-5.0) 09/01/21 08:56 Chloride 101.8 mmol/L (98-107) 09/01/21 08:56 Carbon Dioxide 24 mmol/L (22-30) 09/01/21 08:56 Anion Gap 19 mmol/L 09/01/21 08:56 BUN 9 mg/dL (9-20) 09/01/21 08:56 Creatinine 0.7 mg/dL (0.8-1.3) L 09/01/21 08:56 Estimated GFR > 60 ml/min 09/01/21 08:56 BUN/Creatinine Ratio 13 % 09/01/21 08:56 Glucose 143 mg/dL (75-100) H 09/01/21 08:56 POC Glucose 94 mg/dL (70-105) 09/10/21 06:10 Hemoglobin A1c 6.9 % (4-6) H 09/01/21 08:42 Calcium 9.6 mg/dL (8.4-10.2) 09/01/21 08:56 Total Bilirubin 0.40 mg/dL (0.1-1.2) 09/01/21 08:56 AST 12 units/L (5-40) 09/01/21 08:56 ALT 7 units/L (7-56) 09/01/21 08:56 Alkaline Phosphatase 117 units/L (35-129) 09/01/21 08:56 Total Protein 7.5 g/dL (6.3-8.2) 09/01/21 08:56 Albumin 4.4 g/dL (3.9-5) 09/01/21 08:56 Albumin/Globulin Ratio 1.4 % 09/01/21 08:56 Triglycerides 222 mg/dL (2-149) H 09/01/21 08:56 Cholesterol 233 mg/dL (50-199) H 09/01/21 08:56 LDL Cholesterol Direct 156 mg/dL (50-130) H 09/01/21 08:56 HDL Cholesterol 39 mg/dL (40-59) L 09/01/21 08:56 Cholesterol/HDL Ratio 5.97 % 09/01/21 08:56 TSH 1.100 mlU/mL (0.270-4.200) 09/01/21 08:56 Rodriguez/IV: Voiding Method Toilet Active Medications - Current Medications Current Medications: Generic Name Dose Route Start Last Admin Trade Name Freq PRN Reason Stop Dose Admin Clonazepam 0.25 mg 09/08/21 11:00 09/10/21 09:00 Clonazepam 0.5 Mg Tab PO 09/11/21 06:00 0.25 mg BID LASHAE Administration Donepezil HCl 10 mg 09/01/21 10:00 09/10/21 09:00 Donepezil 10 Mg Tab PO 10 mg QDAY LASHAE Administration Hydroxyzine Pamoate 25 mg 09/02/21 11:00 09/09/21 21:08 Hydroxyzine Pamoate 25 Mg Cap PO 25 mg Q6H PRN Administration Anxiety Lorazepam 1 mg 09/01/21 14:00 09/05/21 11:41 Lorazepam 2 Mg/Ml Vial IM 1 mg Q4H PRN Administration Anxiety Risperidone 2 mg 09/08/21 22:00 09/10/21 09:00 Risperidone 1 Mg Tab PO 2 mg BID LASHAE Administration Trazodone HCl 50 mg 09/01/21 22:00 09/09/21 21:08 Trazodone 50 Mg Tab PO 50 mg QHS LASHAE Administration Trihexyphenidyl HCl 2 mg 09/01/21 10:00 09/10/21 09:00 Trihexyphenidyl 2 Mg Tab PO 2 mg BID LASHAE Administration Nutrition/Malnutrition Assess - Dietary Evaluation Nutrition/Malnutrition Findings: Nutrition Notes Start: 09/07/21 11:01 Freq: Status: Active Protocol: Document 09/07/21 11:01 GB (Rec: 09/07/21 11:08 GB [id number]) Nutrition Notes Need for Assessment generated from: LOS Initial or Follow up Assessment Other Pertinent Diagnosis schizophrenia Current Diet regular (low cholesterol) Labs/Tests 09/01: creatinine 0.7, glucose 147, Tg 222, Cholesterol 233 POC glucose showing improvement Pertinent Medications reviewed Height 5 ft 10 in Weight 79.5 kg [place] Body Weight (kg) 75.45 BMI 25.1 Weight change and time frame Admit No reported changes upon admission Weight Status Appropriate Subjective/Other Information Per MD note 09/07: good appetite, good sleep Last BM: 09/05 PO intake documented at 100% Percent of energy/protein needs met: EEN met 100% with current PO intake Burn Absent Trauma Absent GI Symptoms None Food Allergy No Skin Integrity/Comment No reported complications Current % PO Good (75-100%) Minimum of two criteria No #1 Nutrition Diagnosis No nutrition diagnosis at this time As Evidenced by Signs and Symptoms Good PO, no reported skin complications, no reported significant changes in weight Is patient on ventilator? No Is Patient Ambulatory and/or Out of Bed Yes REE-([facility]-ambulatory/OOB) [ 2146.625 [id number]] Kcal/Kg value to use for calculation 25 Approximate Energy Requirements Using 1988 kcal/Kg Calculation Used for Recommendations Kcal/kg Additional Notes Protein 0.8-1g/kg @ 80k- 80g Fluids: 1 ml/kcal or per MD Nutrition Intervention Change Diet Order: continue Nutrition Support: n/a Add Supplement/Snack (indicate name/kcal n/a /protein ) Goal #1 PO intake to maintain 75% or greater daily for LOS Follow-Up By: 10/10/21 Revisit per MD consult or patient Sign Off request:
[2021-09-10] MEDS: traZODone 50 MG TAB PO SCH (21:10)
[2021-09-11 09:19] VITALS: BP 102/61
[2021-09-11] MEDS: DONEPEZIL 10 MG TAB PO SCH (09:23)
[2021-09-11] MEDS: TRIHEXYPHENIDYL 2 MG TAB PO SCH (09:24)
[2021-09-11] MEDS: risperiDONE 1 MG TAB PO SCH (09:24)
--- NOTE | 2021-09-11 10:13 | Discharge Summary ---
Providers - Providers Date of Admission: 08/31/21 23:53 Date of discharge: 09/11/21 Attending physician: ANGELICA SUBRAMANIAN MD 08/31/21 13:05 Consult to Physician [CONS] Routine Comment: Consulting Provider: CASA FUNEZ Physician Instructions: Reason For Exam: manage medical conditions Primary care physician: ACETYLENE BURNER Hospitalization Reason for admission: psychosis Admitting Diagnosis: F20.9 - SCHIZOPHRENIA, UNSPECIFIED Condition: Stable Hospital course: The patient was provided inpatient psychiatric treatment with safe and supportive care, medication adjustment, adverse effect monitoring, medical evaluations, medical treatments, assessment and psycho-education. The patient's mood, cognition, behavior, moral support are improved and stabilized. St the time of discharge, the patient had no endangering behavior and no debilitating adverse effects. The patient agreed on potential consequences of no treatment and gave informed consent. 09/02/2021: The patient was seen pacing the hallway. The patient reports feeling down sometimes. He said he [facility] years and would like to return there on discharge. He denies any current suicidal ideation and denies hallucinations. 09/03/2021: The patient was seen eating breakfast. He reports doing well. He is focused on discharge. He denies any current suicidal ideation and denies hallucinations. 09/04/2021: Patient seen this morning. He reports doing well and more interactive. He states sleep and appetite as good. The patient denies any current suicidal/homicidal ideation and denies hallucinations. 09/05/2021: He reports doing well. He states sleep and appetite as good. The patient denies any current suicidal/homicidal ideation and denies hallucinations. 09/06/2021: The patient is calm and states he is doing well. He reports mood as " happy" The patient denies any current suicidal/homicidal ideation and denies hallucinations. 09/07/2021: The patient reports doing well. He states sleep and appetite as good. The patient denies any current suicidal/homicidal ideation and denies hallucinations. 09/08 The patient was seen today. Although, the patient states that he's doing alright, he appeared severely anxious, and preoccupied as if listening to something. He was slow to respond, and I had to ask him the questions several times. The nursing staff and SW state the patient paces a lot and was observed upset, pointing and having conversations with people who are not there. 09/09 The patient was seen today. He is more calm than yesterday. He says he's "dong just fine." He denies SI/HHI or hallucinations of any kind. The patient's medications were adjusted yesterday and appear to be working. The nursing staff says the patient has been calm, and cooperative, and they hadn't witnessed the patient hallucinating throughout night. 09/10 The patient was seen today. He is calm and cooperative. He denies SI/HI. He says he slept "a little better." He denies hallucinations of any kind. He denies SI/HI 09/11 The patient was seen today. He says he's doing "just fine." The patient says he feels better. He asks me if he can go home. He denies SI/HI or hallucinations of any kind. Disposition: 01 HOME / SELF CARE / HOMELESS Time spent for discharge: 35 Allergies/Adverse Reactions: Allergies No Known Allergies Allergy (Unverified 08/31/21 13:27) Vital Signs: Last Vital Signs Temp 97.7 F 09/11/21 09:14 Pulse 65 09/11/21 09:14 Resp 19 09/11/21 09:14 BP 102/61 09/11/21 09:14 Pulse Ox 100 09/11/21 09:14 Last Lab: Laboratory Last Values WBC 10.3 K/mm3 (4.5-11.0) 09/01/21 08:56 RBC 5.16 M/mm3 (3.65-5.03) H 09/01/21 08:56 Hgb 16.2 gm/dl (11.8-15.2) H 09/01/21 08:56 Hct 47.9 % (35.5-45.6) H 09/01/21 08:56 MCV 93 fl (84-94) 09/01/21 08:56 MCH 32 pg (28-32) 09/01/21 08:56 MCHC 34 % (32-34) 09/01/21 08:56 RDW 15.0 % (13.2-15.2) 09/01/21 08:56 Plt Count 229 K/mm3 (140-440) 09/01/21 08:56 Lymph % (Auto) 21.2 % (13.4-35.0) 09/01/21 08:56 [place] % (Auto) 7.1 % (0.0-7.3) 09/01/21 08:56 Eos % (Auto) 1.2 % (0.0-4.3) 09/01/21 08:56 Baso % (Auto) 0.8 % (0.0-1.8) 09/01/21 08:56 Lymph # (Auto) 2.2 K/mm3 (1.2-5.4) 09/01/21 08:56 [place] # (Auto) 0.7 K/mm3 (0.0-0.8) 09/01/21 08:56 Eos # (Auto) 0.1 K/mm3 (0.0-0.4) 09/01/21 08:56 Baso # (Auto) 0.1 K/mm3 (0.0-0.1) 09/01/21 08:56 Seg Neutrophils % 69.7 % (40.0-70.0) 09/01/21 08:56 Seg Neutrophils # 7.2 K/mm3 (1.8-7.7) 09/01/21 08:56 Sodium 140 mmol/L (137-145) 09/01/21 08:56 Potassium 4.4 mmol/L (3.6-5.0) 09/01/21 08:56 Chloride 101.8 mmol/L (98-107) 09/01/21 08:56 Carbon Dioxide 24 mmol/L (22-30) 09/01/21 08:56 Anion Gap 19 mmol/L 09/01/21 08:56 BUN 9 mg/dL (9-20) 09/01/21 08:56 Creatinine 0.7 mg/dL (0.8-1.3) L 09/01/21 08:56 Estimated GFR > 60 ml/min 09/01/21 08:56 BUN/Creatinine Ratio 13 % 09/01/21 08:56 Glucose 143 mg/dL (75-100) H 09/01/21 08:56 POC Glucose 108 mg/dL (70-105) H 09/11/21 06:04 Hemoglobin A1c 6.9 % (4-6) H 09/01/21 08:42 Calcium 9.6 mg/dL (8.4-10.2) 09/01/21 08:56 Total Bilirubin 0.40 mg/dL (0.1-1.2) 09/01/21 08:56 AST 12 units/L (5-40) 09/01/21 08:56 ALT 7 units/L (7-56) 09/01/21 08:56 Alkaline Phosphatase 117 units/L (35-129) 09/01/21 08:56 Total Protein 7.5 g/dL (6.3-8.2) 09/01/21 08:56 Albumin 4.4 g/dL (3.9-5) 09/01/21 08:56 Albumin/Globulin Ratio 1.4 % 09/01/21 08:56 Triglycerides 222 mg/dL (2-149) H 09/01/21 08:56 Cholesterol 233 mg/dL (50-199) H 09/01/21 08:56 LDL Cholesterol Direct 156 mg/dL (50-130) H 09/01/21 08:56 HDL Cholesterol 39 mg/dL (40-59) L 09/01/21 08:56 Cholesterol/HDL Ratio 5.97 % 09/01/21 08:56 TSH 1.100 mlU/mL (0.270-4.200) 09/01/21 08:56 Core Measure Documentation - Palliative Care Palliative Care/ Comfort Measures: Not Applicable - Core Measures Any of the following diagnoses?: none Exam - Constitutional Vitals: Temp Pulse Resp BP Pulse Ox 97.7 F 65 19 102/61 100 09/11/21 09:14 09/11/21 09:14 09/11/21 09:14 09/11/21 09:14 09/11/21 09:14 General appearance: Present: no acute distress - EENT Eyes: Present: PERRL, EOM intact ENT: hearing intact, clear oral mucosa - Neck Neck: Present: supple, normal ROM - Respiratory Respiratory effort: normal Plan Activity: advance as tolerated Weight Bearing Status: Weight Bear as Tolerated Care Plan Goals: Maintain good and stable mental health Plan of Treatment: The patient should be compliant with medications, not to use drugs, and not to drink alcohol. The patient understands that if suicidal ideas, homicidal ideas or any endangering feeling arise, the patient should seek assistance including, but not limited to crisis hotline, and emergency room. Assessment: Schizophrenia Follow up with: PRIMARY CARE, [Primary Care Provider] - 7 Days Prescriptions: traZODone [Desyrel] 50 mg PO QHS #30 risperiDONE [RisperDAL] 2 mg PO BID #120 tablet hydrOXYzine PAMOATE [Vistaril] 25 mg PO Q6H PRN #120 capsule PRN Reason: Anxiety
== END 2021-09-11 12:30 | disposition home or self-care (01) | DRG 885 ==
LOC: 3A 12:11 → UNDOADMIN 12:11 → 5A 23:53
PROVIDERS: ADMIT Psychiatry & Neurology Psychiatry; ATTEND Psychiatry & Neurology Psychiatry
DX: F20.9 Schizophrenia, unspecified (principal); E78.5 Hyperlipidemia, unspecified; Z20.822 Contact with and (suspected) exposure to COVID-19; F41.9 Anxiety disorder, unspecified
CPT/HCPCS: 36415; 80053; 80061; 82962; 83036; 84443; 85025; G0378; J2060; J3486; Q0177